=== PATIENT | male | born 1950 | race Caucasian/White ===

== ENCOUNTER 2020-07-07 10:59 | Outpatient (REF) | payer MEDICARE, OTHER, SELFPAY ==
[2020-07-07 13:42] LABS: Anion Gap 15 (12-20); Blood Urea Nitrogen 19 mg/dL (9-16); Carbon Dioxide 28 mmol/L (22-29); Chloride 103 mmol/L (96-108); Estimated Glomerular Filt Rate > 60; Glucose Random 121 mg/dL (60-115); Potassium 5.3 mmol/l (3.3-5.1); Sodium 141 mmol/L (135-145)
== END 2020-07-07 11:00 | disposition home or self-care (01) ==
LOC: HO.MANLDS 10:59
PROVIDERS: PCP Internal Medicine; Visit Provider Internal Medicine
DX: E87.5 Hyperkalemia (principal)
CPT/HCPCS: 80048

== ENCOUNTER 2021-01-06 11:03 | Outpatient (REF) | payer MEDICARE, OTHER, SELFPAY ==
[2021-01-06 13:37] LABS: Estimated Average Glucose 131 mg/dL; Hemoglobin A1c % 6.2 %
[2021-01-06 13:39] LABS: Alanine Aminotransferase 29 U/L (0-40); Albumin Level 4.3 g/dL (3.5-5.0); Alkaline Phosphatase 68 U/L (39-117); Anion Gap 17 (12-20); Aspartate Amino Transferase 24 U/L (5-37); Bilirubin Total 0.3 mg/dL (0.0-1.0); Blood Urea Nitrogen 16 mg/dL (9-16); Calcium 10.3 mg/dL (8.4-10.2); Carbon Dioxide 27 mmol/L (22-29); Chloride 103 mmol/L (96-108); Cholesterol 140 mg/dL; Estimated Glomerular Filt Rate > 60; Glucose Fasting 106 mg/dL (60-99); HDL Cholesterol 52 mg/dL; LDL Cholesterol Calculated 74 mg/dl; Potassium 4.7 mmol/L (3.3-5.1); Sodium 142 mmol/L (135-145); Triglycerides 71 mg/dL
[2021-01-06 13:39] LABS: Creatinine Urine 176.48 mg/dL; Microalbum/Creatinine Ratio Ur 88.9 ug/mg cr
[2021-01-06 14:01] LABS: Free T4 (Free Thyroxine) 1.44 ng/dL (0.71-1.85); Thyroid Stimulating Hormone 0.01 uIU/mL (0.32-4.0)
== END 2021-01-06 11:04 | disposition home or self-care (01) ==
LOC: HO.MANLDS 11:03
PROVIDERS: PCP Internal Medicine; Visit Provider Internal Medicine
DX: E11.9 Type 2 diabetes mellitus without complications (principal); E03.9 Hypothyroidism, unspecified
CPT/HCPCS: 36415; 80053; 80061; 82043; 83036; 84439; 84443

== ENCOUNTER 2021-05-14 10:48 | Outpatient (REF) | payer MEDICARE, OTHER, SELFPAY ==
[2021-05-15 07:34] LABS: Estimated Average Glucose 148 mg/dL; Hemoglobin A1c % 6.8 %
== END 2021-05-14 10:49 | disposition home or self-care (01) ==
LOC: HO.MANLDS 10:48
PROVIDERS: PCP Internal Medicine; Visit Provider Internal Medicine
DX: E11.9 Type 2 diabetes mellitus without complications (principal); E03.9 Hypothyroidism, unspecified
CPT/HCPCS: 36415; 83036

== ENCOUNTER 2021-08-17 09:38 | Outpatient (REF) | payer MEDICARE, OTHER, SELFPAY ==
[2021-08-17 11:16] LABS: Alanine Aminotransferase 41 U/L (0-40); Albumin Level 4.2 g/dL (3.5-5.0); Alkaline Phosphatase 96 U/L (39-117); Anion Gap 11 (12-20); Aspartate Amino Transferase 32 U/L (5-37); Bilirubin Total 0.5 mg/dL (0.0-1.0); Blood Urea Nitrogen 14 mg/dL (9-16); Calcium 9.8 mg/dL (8.4-10.2); Carbon Dioxide 26 mmol/L (22-29); Chloride 108 mmol/L (96-108); Cholesterol 154 mg/dL; Estimated Glomerular Filt Rate > 60; Glucose Fasting 126 mg/dL (60-99); HDL Cholesterol 51 mg/dL; LDL Cholesterol Calculated 82 mg/dl; Potassium 4.9 mmol/L (3.3-5.1); Sodium 140 mmol/L (135-145); Total Protein 7.1 g/dL (6.5-8.0); Triglycerides 109 mg/dL
[2021-08-17 11:21] LABS: Estimated Average Glucose 157 mg/dL; Hemoglobin A1c % 7.1 %
[2021-08-17 11:36] LABS: Free T4 (Free Thyroxine) 1.28 ng/dL (0.71-1.85); Thyroid Stimulating Hormone 0.01 uIU/mL (0.32-4.0)
[2021-08-17 15:09] LABS: Creatinine Urine 117.41 mg/dL; Microalbum/Creatinine Ratio Ur 120.9 ug/mg cr
== END 2021-08-17 09:39 | disposition home or self-care (01) ==
LOC: HO.MANLDS 09:38
PROVIDERS: PCP Internal Medicine; Visit Provider Internal Medicine
DX: E11.9 Type 2 diabetes mellitus without complications (principal); E03.9 Hypothyroidism, unspecified
CPT/HCPCS: 36415; 80053; 80061; 82043; 83036; 84439; 84443

== ENCOUNTER 2022-01-14 11:36 | Outpatient (REF) | payer MEDICARE, OTHER, SELFPAY ==
[2022-01-14 13:28] LABS: Estimated Average Glucose 131 mg/dL; Hemoglobin A1c % 6.2 %
[2022-01-14 13:33] LABS: Alanine Aminotransferase 45 U/L (0-40); Albumin Level 4.4 g/dL (3.5-5.0); Alkaline Phosphatase 96 U/L (39-117); Anion Gap 13 (12-20); Aspartate Amino Transferase 36 U/L (5-37); Bilirubin Total 0.5 mg/dL (0.0-1.0); Blood Urea Nitrogen 17 mg/dL (9-16); Calcium 10.2 mg/dL (8.4-10.2); Carbon Dioxide 26 mmol/L (22-29); Chloride 106 mmol/L (96-108); Cholesterol 146 mg/dL; Estimated Glomerular Filt Rate > 60; Glucose Random 119 mg/dL (60-115); HDL Cholesterol 54 mg/dL; LDL Cholesterol Calculated 77 mg/dl; Potassium 4.2 mmol/L (3.3-5.1); Sodium 141 mmol/L (135-145); Total Protein 7.5 g/dL (6.5-8.0); Triglycerides 76 mg/dL
[2022-01-14 13:41] LABS: Creatinine Urine 55.05 mg/dL; Microalbum/Creatinine Ratio Ur 159.8 ug/mg cr
[2022-01-14 13:53] LABS: Free T4 (Free Thyroxine) 1.45 ng/dL (0.71-1.85); Thyroid Stimulating Hormone < 0.01 uIU/mL (0.32-4.0)
== END 2022-01-14 11:37 | disposition home or self-care (01) ==
LOC: HO.MANLDS 11:36
PROVIDERS: PCP Internal Medicine; Visit Provider Internal Medicine
DX: E11.9 Type 2 diabetes mellitus without complications (principal); E03.9 Hypothyroidism, unspecified
CPT/HCPCS: 36415; 80053; 80061; 82043; 83036; 84439; 84443

== ENCOUNTER 2022-05-11 08:53 | Outpatient (REF) | payer MEDICARE, OTHER, SELFPAY ==
[2022-05-11 11:46] LABS: Estimated Average Glucose 114 mg/dL; Hemoglobin A1C 152.6518 umol/L; Hemoglobin A1c % 5.6 %
[2022-05-11 12:28] LABS: Free T4 (Free Thyroxine) 1.56 ng/dL (0.71-1.85); Thyroid Stimulating Hormone 0.01 uIU/mL (0.32-4.0)
[2022-05-11 12:48] LABS: Alanine Aminotransferase 37 U/L (0-40); Albumin Level 4.2 g/dL (3.5-5.0); Alkaline Phosphatase 104 U/L (39-117); Anion Gap 19 (12-20); Aspartate Amino Transferase 33 U/L (5-37); Bilirubin Total 0.5 mg/dL (0.0-1.0); Blood Urea Nitrogen 17 mg/dL (9-16); Carbon Dioxide 23 mmol/L (22-29); Chloride 105 mmol/L (96-108); Estimated Glomerular Filt Rate > 60; Glucose Random 63 mg/dL (60-115); Potassium 5.3 mmol/L (3.3-5.1); Sodium 142 mmol/L (135-145); Total Protein 7.2 g/dL (6.5-8.0)
== END 2022-05-11 08:54 | disposition home or self-care (01) ==
LOC: HO.MANLDS 08:53
PROVIDERS: Visit Provider Internal Medicine
DX: E03.9 Hypothyroidism, unspecified (principal); E11.9 Type 2 diabetes mellitus without complications
CPT/HCPCS: 36415; 80053; 83036; 84439; 84443

== ENCOUNTER 2022-08-16 11:44 | Outpatient (REF) | payer MEDICARE, OTHER, SELFPAY ==
[2022-08-16 16:10] LABS: Alanine Aminotransferase 48 U/L (0-40); Albumin Level 4.5 g/dL (3.5-5.0); Alkaline Phosphatase 85 U/L (39-117); Anion Gap 14 (12-20); Aspartate Amino Transferase 38 U/L (5-37); Bilirubin Total 0.4 mg/dL (0.0-1.0); Blood Urea Nitrogen 15 mg/dL (9-16); Calcium 10.1 mg/dL (8.4-10.2); Carbon Dioxide 26 mmol/L (22-29); Chloride 106 mmol/L (96-108); Estimated Glomerular Filt Rate > 60; Free T4 (Free Thyroxine) 1.27 ng/dL (0.71-1.85); Glucose Random 73 mg/dL (60-115); Sodium 141 mmol/L (135-145); Thyroid Stimulating Hormone 0.01 uIU/mL (0.32-4.0); Total Protein 7.2 g/dL (6.5-8.0)
[2022-08-16 16:11] LABS: Estimated Average Glucose 123 mg/dL; Hemoglobin A1c % 5.9 %
== END 2022-08-16 11:45 | disposition home or self-care (01) ==
LOC: HO.MANLDS 11:44
PROVIDERS: Visit Provider Internal Medicine
DX: E03.9 Hypothyroidism, unspecified (principal); E11.9 Type 2 diabetes mellitus without complications
CPT/HCPCS: 36415; 80053; 83036; 84439; 84443

== ENCOUNTER 2022-11-02 10:29 | Outpatient (REF) | payer MEDICARE, OTHER, SELFPAY ==
[2022-11-02 13:21] LABS: Estimated Average Glucose 137 mg/dL; Hemoglobin A1c % 6.4 %
== END 2022-11-02 10:30 | disposition home or self-care (01) ==
LOC: HO.MANLDS 10:29
PROVIDERS: Visit Provider Internal Medicine
DX: E11.9 Type 2 diabetes mellitus without complications (principal)
CPT/HCPCS: 36415; 83036

== ENCOUNTER 2023-03-01 08:26 | Outpatient (REF) | payer MEDICARE, OTHER, SELFPAY | END 2023-03-01 08:27 | disposition home or self-care (01) | LOC: HO.MANLDS 08:26 | PROVIDERS: Visit Provider Internal Medicine | DX: E78.5 Hyperlipidemia, unspecified (principal); I48.91 Unspecified atrial fibrillation; E11.9 Type 2 diabetes mellitus without complications | CPT/HCPCS: 36415; 80053; 83036; 84439; 84443 ==

== ENCOUNTER 2023-08-23 09:33 | Outpatient (REF) | payer MEDICARE, OTHER, SELFPAY ==
[2023-08-23 13:42] LABS: Estimated Average Glucose 134 mg/dL; Hemoglobin A1c % 6.3 % (<6.0)
[2023-08-23 16:51] LABS: Alanine Aminotransferase 44 U/L (0-40); Albumin Level 4.2 g/dL (3.5-5.0); Alkaline Phosphatase 78 U/L (39-117); Anion Gap 11 (12-20); Aspartate Amino Transferase 39 U/L (5-37); Bilirubin Total 0.4 mg/dL (0.0-1.0); Blood Urea Nitrogen 15 mg/dL (9-16); Calcium 10.1 mg/dL (8.4-10.2); Carbon Dioxide 28 mmol/L (22-29); Chloride 108 mmol/L (96-108); Estimated Glomerular Filt Rate > 60; Glucose Random 107 mg/dL (60-115); Potassium 4.7 mmol/L (3.3-5.1); Sodium 142 mmol/L (135-145); Total Protein 7.7 g/dL (6.5-8.0)
[2023-08-23 17:16] LABS: Free T4 (Free Thyroxine) 1.11 ng/dL (0.71-1.85); Thyroid Stimulating Hormone 0.07 uIU/mL (0.32-4.0)
== END 2023-08-23 09:34 | disposition home or self-care (01) ==
LOC: HO.MANLDS 09:33
PROVIDERS: Visit Provider Internal Medicine
DX: E78.5 Hyperlipidemia, unspecified (principal); I48.91 Unspecified atrial fibrillation
CPT/HCPCS: 36415; 80053; 83036; 84439; 84443

== ENCOUNTER 2023-12-12 09:31 | Outpatient (REF) | payer MEDICARE, OTHER, SELFPAY ==
[2023-12-12 14:28] LABS: Estimated Average Glucose 134 mg/dL; Hemoglobin A1c % 6.3 % (<6.0)
[2023-12-12 16:40] LABS: Alanine Aminotransferase 40 U/L (0-40); Albumin Level 4.1 g/dL (3.5-5.0); Alkaline Phosphatase 71 U/L (39-117); Anion Gap 13 (12-20); Aspartate Amino Transferase 35 U/L (5-37); Bilirubin Total 0.3 mg/dL (0.0-1.0); Blood Urea Nitrogen 13 mg/dL (9-16); Calcium 9.7 mg/dL (8.4-10.2); Carbon Dioxide 24 mmol/L (22-29); Chloride 108 mmol/L (96-108); Estimated Glomerular Filt Rate > 60; Glucose Random 82 mg/dL (60-115); Potassium 4.7 mmol/L (3.3-5.1); Sodium 140 mmol/L (135-145); Total Protein 7.3 g/dL (6.5-8.0)
[2023-12-12 16:43] LABS: Free T4 (Free Thyroxine) 1.24 ng/dL (0.71-1.85); Thyroid Stimulating Hormone 0.13 uIU/mL (0.32-4.0)
== END 2023-12-12 09:32 | disposition home or self-care (01) ==
LOC: HO.MANLDS 09:31
PROVIDERS: Visit Provider Internal Medicine
DX: I48.91 Unspecified atrial fibrillation (principal); E11.9 Type 2 diabetes mellitus without complications; E78.5 Hyperlipidemia, unspecified
CPT/HCPCS: 36415; 80053; 83036; 84439; 84443

== ENCOUNTER 2024-04-02 09:16 | Outpatient (REF) | payer MEDICARE, OTHER, SELFPAY ==
[2024-04-02 14:01] LABS: Estimated Average Glucose 128 mg/dL; Hemoglobin A1c % 6.1 % (<6.0)
== END 2024-04-02 09:17 | disposition home or self-care (01) ==
LOC: HO.MANLDS 09:16
PROVIDERS: Visit Provider Internal Medicine
DX: E11.9 Type 2 diabetes mellitus without complications (principal)
CPT/HCPCS: 36415; 83036

== ENCOUNTER 2024-06-24 08:08 | Outpatient (REF) | payer MEDICARE, OTHER, SELFPAY ==
[2024-06-24 14:10] LABS: Estimated Average Glucose 134 mg/dL; Hemoglobin A1C 177.0258 umol/L; Hemoglobin A1c % 6.3 % (<6.0); Total Hemoglobin (HGBA1C) 3951.4873 umol/L
[2024-06-24 14:17] LABS: Alanine Aminotransferase 27 U/L (0-40); Albumin Level 4.3 g/dL (3.5-5.0); Alkaline Phosphatase 73 U/L (39-117); Anion Gap 15 (12-20); Aspartate Amino Transferase 39 U/L (5-37); Bilirubin Total 0.3 mg/dL (0.0-1.0); Blood Urea Nitrogen 14 mg/dL (9-16); Calcium 10.4 mg/dL (8.4-10.2); Carbon Dioxide 23 mmol/L (22-29); Chloride 106 mmol/L (96-108); Cholesterol 175 mg/dL (<200); Estimated Glomerular Filt Rate > 60; Glucose Random 92 mg/dL (60-115); HDL Cholesterol 58 mg/dL (>40); LDL Cholesterol Calculated 98 mg/dL (<100); Potassium 4.3 mmol/L (3.3-5.1); Sodium 140 mmol/L (135-145); Total Protein 7.5 g/dL (6.5-8.0); Triglycerides 95 mg/dL (<150)
[2024-06-24 14:30] LABS: Prostate Specific Antigen 1.07 ng/mL (<0.05-4.0)
[2024-06-24 14:32] LABS: Thyroid Stimulating Hormone 0.58 uIU/mL (0.32-4.0)
== END 2024-06-24 08:09 | disposition home or self-care (01) ==
LOC: HO.MANLDS 08:08
PROVIDERS: Visit Provider Internal Medicine
DX: E11.9 Type 2 diabetes mellitus without complications (principal); E03.9 Hypothyroidism, unspecified; E78.00 Pure hypercholesterolemia, unspecified; N40.0 Benign prostatic hyperplasia without lower urinary tract symptoms; Z12.5 Encounter for screening for malignant neoplasm of prostate
CPT/HCPCS: 36415; 80053; 80061; 83036; 84153; 84443

== ENCOUNTER 2024-10-02 10:52 | Outpatient (REF) | payer MEDICARE, OTHER, SELFPAY ==
--- OUTSIDE RECORDS SUMMARY | 2024-10-02 12:08 | XMS_ITS | Clinical Summary ---
Author Organization [facility] Address [phone] [place] [address] Care Team Providers Care Media Specialist Name Role Phone Amauryyanni Rangel Carina OWENS Primary Care Provider [phone] Social History Tobacco Use Types Packs/Day Years Used Date Smoking Tobacco: Never Assessed Education Answer Date Recorded Are you interested in more education? Not on tita e 12/23/2022 Are you concerned about learning? Not on file 12/23/2022 No 12/23/2022 No 12/23/2022 Digital Access Answer Date Recorded No 01/23/2023 No 01/23/2023 No 01/23/2023 Reliable internet access at home? Not on file 01/23/2023 Device with a working camera? Not on file Sex and Gender Information Value Date Recorded Sex Assigned at Not on file Gender Identity Not on file Sexual Orientation Not on file Last Filed Vital Signs Vital Sign Reading Time Taken Comments Blood Pressure 132/80 12/29/2010 9:05 AM EDT Pulse - - Temperature - - Respiratory Rate - - Oxygen Saturation - - Inhaled Oxygen Concentration - - Weight - - Height - - Body Mass Index - - Plan of Treatment Not on file Medical Devices Not on file Care Teams Media Specialist Relationship Specialty Start Date End Date Rangel Zepeda DO PCP - General Internal Medicine 09/22/20 Additional Source Comments The information contained in this document represents components of the legal health record. It is not the complete legal health record.[facility]
--- OUTSIDE RECORDS SUMMARY | 2024-10-02 12:08 | XMS_ITS | Clinical Summary ---
Author Organization [facility] Address [address] [place] [address] Care Team Providers Care Drencher Name Role Phone Rangel Zepeda Primary Care Provider [phone] Medications Aspirin (ST VLADIMIR) 81 MG EC tablet 1 (one) time each day at the same time. Active Semaglutide (Ozempic, 1 MG/DOSE,) 4 MG/3ML prefilled pen Ozempic 1 mg/dose (4 mg/3 mL) subcutaneous pen injector Inject by subcutaneous route for 21 days. Active Lovastatin (MEVACOR) 40 MG tablet Take 40 mg by mouth 1 (one) time each day. 3 Active amLODIPine Besylate (NORVASC) 5 MG tablet amlodipine 5 mg tablet TAKE 1 TABLET BY MOUTH EVERY DAY Active Levothyroxine Sodium (SYNTHROID, LEVOTHROID) 125 MCG tablet Take 125 mcg by mouth 1 (one) time each day. 3 Active Immunizations Name Administration Dates Next Due COVID-19, mRNA (Pfizer Pre F 2022) Monovalent, 30 mcg/0.3 ml 06/04/2021,11/19/2020,10/29/2020 Covid-19, mRNA (Pfizer Pre F all 2022) Bivalent, 30 mcg/0.3 ml vasquez-sucrose (12+) dose 07/09/2022 Covid-19, mRNA (Pfizer Pre F all 2022) Monovalent, 30 mcg/0.3 ml vasquez-sucrose (12+) 11/26/2021 Influenza, Quad, Inactivated , Adjuvanted, Preser Fr 06/11/2021 Influenza,adjuvanted,trivalent,PF (Fluad) 2016 Influenza,high dose seasonal ,trivalent,PF (Fluzone HD) 04/24/2019,07/07/2018 Influenza,high-dose, Quadrivalent 07/31/2023,01/2022 Influenza,injectable,quad,preservative Tdap 11/02/2016 Zoster (Zostavax) 03/13/2018,11/22/2017 Social History Tobacco Use Types Packs/Day Years Used Date Smoking Tobacco: Never Passive Smoke Exposure: Never Smokeless Tobacco: Never Intimate Partner Violence Answer Date R ecorded Fear of Current or Ex-Partner Not on file Emotionally Abused Not on file 04/17/2023 Physically Abused Not on file 04/17/2023 Sexually Abused Not on file 04/17/2023 Feel Safe at Home Not on file 04/17/2023 Sex and Gender Information Value Date Recorded Sex Assigned at Not on file Legal Sex Male 3:26 PM EDT Gender Identity Not on file Sexual Orientation Not on file Last Filed Vital Signs Vital Sign Reading Time Taken Comments Blood Pressure 162/72 01/29/2023 3:52 PM EDT Pulse 89 01/29/2023 3:50 PM EDT Temperature 37.5 ??C (99.5 ??F) 01/29/2023 3:50 PM ED T Respiratory Rate - - Oxygen Saturation 97% 01/29/2023 3:50 PM EDT Inhaled Oxygen Concentration - - Weight - - Height - - Body Mass Index - - Plan of Treatment Health Maintenance Due Date Last Done Comments Hepatitis C Screening 1948 Colon Cancer Screening 1993 Pneumococcal 50+ years (1 of 1 - PCV) 1998 Zoster (Shingrix) (2 of 3) 05/08/2018 03/13/2018, RSV (1 - 1-dose 75+ series) 2023 COVID-19 Vaccine ( season) 2024 07/09/2022, 11/26/2021, 06/04/2021, Additional history exists Influenza (#1) 2024 07/31/2023, 10/01/2022, 06/11/2021, Additional history exists DTaP/Tdap/Td (2 - Td or Tdap) 11/02/2026 11/02/2016 Zoster (Zostavax) Discontinued 03/13/2018, 11/22/2017 LDL Cholesterol Discontinued 09/22/2020, 09/22/2020 HPV Vaccine Aged Out No longer eligi ble based on patient's age to complete this topic Hep A Aged Out No longer eligi ble based on patient's age to complete this topic Hep B Aged Out No longer eligi ble based on patient's age to complete this topic Hib Aged Out No longer eligi ble based on patient's age to complete this topic Meningococcal ACWY Aged Out No longer eligible based on patient's age to complete this topic Insurance MEDICARE PART B Care Teams Drencher Relationship Specialty Start Date End Date Rangel Zepeda [facility] [address] [place] [id number] PCP - General Internal Medicine 01/29/23
--- OUTSIDE RECORDS SUMMARY | 2024-10-02 12:09 | XMS_ITS | Data Portability ---
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 REVIEW OF PRIOR EXTERNAL NOTES/RESULTS, ORDERING OF TEST(S) CATEGORY 2. 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) MDM MODERATE MUST MEET 2 OUT OF 3 ELEMENTS: PROBLEMS, DATA OR RISK ELEMENT 1: PROBLEMS ADDRESSED 1 OR MORE CHRONIC ILLNESS WITH EXACERBATION OR 2 OR MORE STABLE CHRONIC ILLNESSES OR 1 UNDIAGNOSED NEW PROBLEM OR 1 ACUTE ILLNESS W/SYMPTOMS OR 1 ACUTE COMPLICATED INJURY ELEMENT 2: DATA MUST MEET 1 OF 3 CATEGORIES CATEGORY 1: REVIEW OF PRIOR EXTERNAL NOTES, REVIEW OF RESULTS, ORDERING OF EACH TEST, ASSESSMENT REQUIRING INDEPENDENT HISTORIAN OR CATEGORY 2: INDEPENDENT INTERPRETATION OF TESTS BY ANOTHER PHYSICIAN OR SPECIALIST OR CATEGORY 3: DISCUSSION OF MGT OR TEST INTERPRETATION W/EXTERNAL PHYSICIAN OR SPECIALIST ELEMENT 3: RISK RISK OF COMPLICATIONS AND/OR MORBIDITY OR MORTALITY OF PATIENT MANAGEMENT PROVIDER MUST THOROUGHLY DOCUMENT EACH ELEMENT THAT IS COVERED Not available 09/01/2023 10:52:06 12/19/2023 12/19/2023 [id number] [place] [id number]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) MDM MODERATE MUST MEET 2 OUT OF 3 ELEMENTS: PROBLEMS, DATA OR RISK ELEMENT 1: PROBLEMS ADDRESSED 1 OR MORE CHRONIC ILLNESS WITH EXACERBATION OR 2 OR MORE STABLE CHRONIC ILLNESSES OR 1 UNDIAGNOSED NEW PROBLEM OR 1 ACUTE ILLNESS W/SYMPTOMS OR 1 ACUTE COMPLICATED INJURY ELEMENT 2: DATA MUST MEET 1 OF 3 CATEGORIES CATEGORY 1: REVIEW OF PRIOR EXTERNAL NOTES, REVIEW OF RESULTS, ORDERING OF EACH TEST, ASSESSMENT REQUIRING INDEPENDENT HISTORIAN OR CATEGORY 2: INDEPENDENT INTERPRETATION OF TESTS BY ANOTHER PHYSICIAN OR SPECIALIST OR CATEGORY 3: DISCUSSION OF MGT OR TEST INTERPRETATION W/EXTERNAL PHYSICIAN OR SPECIALIST ELEMENT 3: RISK RISK OF COMPLICATIONS AND/OR MORBIDITY OR MORTALITY OF PATIENT MANAGEMENT PROVIDER MUST THOROUGHLY DOCUMENT EACH ELEMENT THAT IS COVERED Not available 12/19/2023 14:19:09 06/28/2024 06/28/2024 Patient presente d to office today for their Medicare Annual Wellness Visit. Education was provided on healthy nutrition, including a diet rich in fruits and vegetables, minimizing simple carbohydrates, salt, and saturated fats. Encouraged regular cardiovascular exercise such as walking at least 30 minutes daily, 5 times per week. Emphasized preventive health measures and educated pt on fall prevention and community-based lifestyle interventions to help reduce health risks and promote healthy living. Not available 03/27/2024 14:05:15 Plan of Treatment Reminders Order Date Submit Date Provider Last Modified By Organization Details Last Modified Time Details Appointments FOLLOW UP 15 2024 02:00P M DR MACDONALD Not available Not available Not available Lab hepatitis C Ab, serum 2022 023 [facility], [address] [place] [address], [id number], 03/07/2023 14:30:33 lipid panel, blood 2023 024 [facility], [address] [place] [address], [id number], 06/28/2024 13:59:25 CBC w/ auto diff 2023 024 [facility], [address] [place] [address], [id number], 06/28/2024 13:59:25 CMP, serum or plasma 2023 024 [facility], [address] [place] [address], [place], [address], 06/28/2024 13:59:25 Referral None recorded. Procedures None recorded. Surgeries None recorded. Imaging XR, knee, 3 view 2023 [facility] (Central Scheduling For Imaging And Labs), [address] [place] [address], [id number], 07/12/2024 08:23:31 Medication Orders None recorded. Patient TargetsNo targets recorded. Patient Instructions Encounter Date Encounter Id Patient Instructions Last Modified By Organization Details Last Modified Time 03/07/2023 [id number] diabetic foot exam* Not available 03/07/2023 14:25:45 pulse oximetry* Not available 03/07/2023 14:25:46 06/13/2023 [id number] atrial fibrillation: care instructions Not available 06/13/2023 14:08:18 aortic valve stenosis: care instructions Not available 06/13/2023 14:08:18 12/19/2023 [id number] atrial fibrillation: care instructions Not available 12/19/2023 14:21:27 06/28/2024 [id number] atrial fibrillation: care instructions Not available 06/28/2024 13:58:03 hypothyroidism: care instructions Not available 06/28/2024 13:58:03 aortic valve stenosis: care instructions Not available 06/28/2024 13:58:03 Discussed and explained advance directives such as standard forms to the {{patient caregiv er patient and caregiver}}. Face to face discussion lasted for a duration of ___ minutes. Not available 03/27/2024 14:05:15 Reason for Referral None Reported. Results Created Date Observation Date Name Description Value Unit Range Abnormal Flag Note LastModifiedBy Organization Detail LastModifiedTime 03/07/2003/07/2023 pulse oxime try* Result 96 Not Available [facility] [address] [facility] [address], [place], [address], 03/07/2023 08:20:24 03/08/2001/31/2023 , echo ardio gram No observ ation record ed. [facility] (Central Scheduling For Imaging And Labs) [address] [facility], [place], [address], 06/13/2023 14:09:47 Result Notes None recorded. 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 Kaelyn ortiz [facility] 8 08:44:43 Diabetic peripher al neuropat hy 149211127 Active 2020 Rangel Macdonald DO [address] [place] [address], [address], [place] [facility] 1 13:53:46 Primary erectile dysfunct ion 029655449 Active 2020 Rangel Macdonald DO [address] [place], [address], [place] [facility] 1 14:09:52 Chronic cough 63433476 Active 2022 Rangel Macdonald DO [address] [place], [address], [facility] 3 15:13:26 Dyspnea on exertion 71968561 Active 2022 Rangel Dominguez Amauryyanni, DO [address] [place], [address], [facility] 3 23:00:00 Atrial fibrilla tion 09168810 Active 2022 Rangel Dominguez Katelyn, DO [address] [place] [address], [address], [facility] 3 09:56:04 Aortic valve stenosis 56609807 Active 2022 Rangel CarinaElizabeth Macdonald, DO [address] [place] [address], [address], [facility] ([facility] 3 16:18:34 COVID-19 614788608 Active 2022 ALDEN VÁSQUEZ [address] [place] [address], [address], [facility] 3 09:30:55 Benign prostati c hyperpla saba 793293136 Active 2023 Rangel LimElizabeth Macdonald, DO [address] [place] [address], [address], [facility] 4 15:34:00 Contusio n of left knee 8604221711 1853385 Active 2023 Rangel Macdonald, DO [address] [place] [address], [address], [facility] 4 13:57:10 Notes:[place] - possi ble exposed to agent orange Problem Notes None recorded. Procedures Surgical History Date Name Laterality Status Provider Name and Address Organization Details Recorded Time 0 Colonoscopy completed Kaelyn Howard [facility] 08/07/2018 14:16:54 Imaging Results Imaging Date Name Status LastModified by Organization Details LastModified Time 01/31/2023 US, echocardiogram completed [facility] (Central Scheduling For Imaging And Labs) [address] [facility], [place], [address], 06/13/2023 14:09:47 Procedure Notes None recorded. Medical Equipment None Reported. Allergies No known drug allergies Medications Name Sig Start Date Stop Date Status Note LastModified by Organization Details LastModified Time metformin 500 mg tablet TAKE 4 TABLETS BY MOUTH EVERY DAY 01/13 completed Not Available Not Available Not Available levothyro xine 137 mcg tablet TAKE 1 TABLET BY MOUTH EVERY DAY 03/07 completed Not Available Not Available Not Available lovastati n 40 mg tablet TAKE 1 TABLET BY MOUTH EVERY DAY 2024 active Not Available Not Available Not Avai lable amlodipin e 5 mg tablet TAKE 1 TABLET BY MOUTH EVERY DAY active Not Available Not Available No t Available cefadroxi l 500 mg capsule 03/07 completed Not Available Not Available Not Available levothyro xine 125 mcg tablet TAKE 1 TABLET BY MOUTH EVERY DAY 06/13 completed Not Available Not Available Not Available aspirin 81 mg chewable tablet CHEW AND SWALLOW ONE TABLET EVERY DAY active Not Available Not Available No t Available lisinopri l 5 mg tablet TAKE 1 TABLET BY MOUTH EVERY DAY 10/22 completed elevated K+ Not Available Not Available Not Available Aspir-81 mg tablet,de layed release Take 1 tablet every day by oral route. 12/18 completed Not Available Not Available Not Available lisinopri l 40 mg tablet take 1 tablet by mouth once daily 10/08 completed Not Available Not Available Not Available levothyro xine 112 mcg tablet TAKE 1 TABLET BY MOUTH EVERY DAY active Not Available Not Available No t Available OneTouch UltraSoft Lancets TEST twice a day 10/31 completed Not Available Not Available Not Available Januvia 100 mg tablet TAKE 1 TABLET BY MOUTH ONCE DAILY 01/13 completed Not Available Not Available Not Available OneTouch Verio test strips TEST ONCE DAILY 2023 active Not Available Not Available Not Avai lable Levemir FlexTouch U-100 Insulin 100 unit/mL (3 mL) subcutane ous pen Inject 30 units every day by sub-q route for 23 days. 05/08 completed Not Available Not Available Not Available Jardiance 10 mg tablet TAKE 1 TABLET BY MOUTH EVERY DAY active Not Available Not Available No t Available Daleaglpastora KwikPen U-100 Insulin 100 unit/mL (3 mL) subcutane ous ADMINIST ER 45 UNITS UNDER THE SKIN EVERY DAY 2023 active Not Available Not Available Not Avai lable Shingrix (PF) 50 mcg/0.5 mL intramusc ular suspensio n, kit 04/11 completed Not Available Not Available Not Available Ozempic 1 mg/dose (2 mg/1.5 mL) subcutane ous pen injector INJECT 1 MG UNDER THE SKIN WEEKLY AFTER COMPLETI NG TITRATIO N DOSE OF 0.25-0.5 MG 10/31 completed Not Available Not Available Not Available Ozempic 0.25 mg or 0.5 mg (2 mg/1.5 mL) subcutane ous pen injector inject 0.25mg x 4 doses, 0.5mg x 4 doses, then 1mg thereaft er is tolerate d 10/31 completed Not Available Not Available Not Available BD Kimmie 2nd Gen Pen Needle 32 gauge x 32 USE TO INJECT ONCE DAILY DIRECTED 2023 active Not Available Not Available Not Avai lable OneTouch Delica Plus Lancet 33 gauge USE TO TEST THREE TIMES DAILY 2023 active Not Available Not Available Not Avai lable Fluzone High-Dose 2019-20 (PF) 180 mcg/0.5 mL intramusc ular syringe 10/08 completed Not Available Not Available Not Available Ozempic 1 mg/dose (4 mg/3 mL) subcutane ous pen injector INJECT 1MG UNDER THE SKIN EVERY WEEK 2023 active Not Available Not Available Not Avai lable BinaxNOW COVID-19 Ag Self Test kit TEST DIRECTED TODAY 03/07 completed Not Available Not Available Not Available Paxlovid 300 mg (150 mg x 2)-100 mg tablets in a dose pack TK 2 NIRMATRE LVIR TS AND 1 RITONAVI R T TOGETHER PO TWICE DAILY FOR 5 DAYS 06/13 completed Not Available Not Available Not Available Vitals Date Recorded Body height Body mass index (BMI) Body weight Heart rate Oxygen saturation Oxygen saturation in Arterial blood by Pulse oximetry Systolic blood pressure Diastolic blood pressure Provider Name and Address Organization Details Last Updated DateTime 3 183.52 cm 25.7 kg/m2 04224.5 g 78 /min 96 % 96 % 140 mm[Hg] 80 mm[Hg] Rangel Macdonald, DO [address] [place], [address], [facility] 3 13:37:36 Date Recorded Body height Body mass index (BMI) Body weight Heart rate Oxygen saturation Oxygen saturation in Arterial blood by Pulse oximetry Systolic blood pressure Diastolic blood pressure Provider Name and Address Organization Details Last Updated DateTime 3 183.52 cm 26.4 kg/m2 30735.1 g 63 /min 98 % 98 % 120 mm[Hg] 68 mm[Hg] Rosey Marshall [facility] 3 13:53:13 Date Recorded Body height Body mass index (BMI) Body weight Heart rate Oxygen saturation Oxygen saturation in Arterial blood by Pulse oximetry Systolic blood pressure Diastolic blood pressure Provider Name and Address Organization Details Last Updated DateTime 4 183.52 cm 27.2 kg/m2 36699.7 4 g 70 /min 98 % 98 % 152 mm[Hg] 84 mm[Hg] Brittani Perez [facility] 4 13:56:01 Date Recorded Body height Body mass index (BMI) Body weight Heart rate Oxygen saturation Oxygen saturation in Arterial blood by Pulse oximetry Systolic blood pressure Diastolic blood pressure Provider Name and Address Organization Details Last Updated DateTime 4 182.88 cm 27.4 kg/m2 65349.6 6 g 62 /min 96 % 96 % 140 mm[Hg] 84 mm[Hg] Kd Mackey [facility] 4 13:31:49 Social History Question Answer Notes LastModified by Organizat ion Details LastModified Time Tobacco Smoking Status Former Smoker 1 ppd Kaelyn ortiz [facility] 08/07/2018 13:50:58 What Was The Date Of Your Most Recent Tobacco Screening? 06/28/2024 [email or web address] Information not available 06/28/2024 Do You Or Have You Ever Used Any Other Forms Of Tobacco Or Nicotine? No Information not available 10/31/2022 Sex: Unknown Functional Status None recorded. Mental Status None recorded. Family History Nothing Reported. Medical History No medical history recorded. Immunizations Vaccine Type Date Status Note Provider Nam e and Address Organization Details Recorded Time COVID-19, mRNA, LNP-S, PF, 30 mcg/0.3 mL dose 1 completed Dawna rotiz [facility] 02/08/2022 08:31:01 COVID-19, mRNA, LNP-S, PF, 30 mcg/0.3 mL dose 2 [facility]08[facility]2022 08:31:13 Influenza, split virus, quadrivalent, preservative 1 completed [facility] 02/08/2022 08:31:31 Influenza, split virus, quadrivalent, preservative 8 completed Rangel Macdonald, [address], [place], [address] 07/08/2018 19:53:02 zoster live 8 completed Kaelyn Howard [facility] 08/07/2018 13:50:26 zoster live 8 completed [facility] 08/07/2018 13:50:45 Influenza, split virus, quadrivalent, preservative 0 completed [facility] 05/19/2020 10:58:10 Tdap 7 completed Kaelyn Howard [facility] 01/12/2021 09:54:45 COVID-19, mRNA, LNP-S, PF, 30 mcg/0.3 mL dose 1 corey ortiz [facility] 01/12/2021 09:55:04 COVID-19, mRNA, LNP-S, PF, 30 mcg/0.3 mL dose 1 corey ortiz [facility] 01/12/2021 09:55:08 Past Encounters Encounter ID Performer Location Encounter Start Date Encounter Closed Date Diagnosis/Indication Diagnosis SNOMED-CT Code Diagnosis ICD10 Code Diagnosis Note [id number] Rangel Dominguez Katelyn [facility] [address] [facility] [place] [address] 04/11/2018 15:28:28 04/11/2018 16:21:21 Hypertensive disorder 86279781 I10 here and is doing well w bp states Hypothyroidism 59081461 E03.9 need to have this eval next visit Type 2 checo betes mellitus 30117348 E11.9 doing well with 6.6 and will cont with 30 units of levemir [id number] Rangel LimElizabeth Macdonald [facility] [address] [facility] [place] [address] 08/07/2018 13:40:30 08/07/2018 15:35:47 Hypertensive disorder 18338675 I10 here and is doing well w bp states Hypothyroidism 73872340 E03.9 need to have this eval next visit Type 2 checo betes mellitus 03747758 E11.9 doing well with 6.0 and will cont with 30 units of levemir Tobacco de pendence syndrome 79691726 F17.200 many warnings Abdominal aortic aneurysm screening 150405241 Z13.6 [id number] Rangel Macdonald [facility] [address] [facility],[place] [address] 12/04/2018 13:40:30 12/04/2018 14:50:14 Adult health examination 174157705 Z00.01 wish he would quit smoking Active or passive immunization 768265612 Z23 Tobacco de pendence syndrome 28862295 F17.200 many many warnings [id number] Rangel Macdonald [facility] [address] [facility] [place] [address] 03/18/2019 11:11:10 03/18/2019 12:06:43 Type 2 diabetes mellitus 38685742 E11.9 doing well with 5.9 and will cont with 30 units of basaglar Hypothyroidism 51225306 E03.9 need to have this eval next visit Hypertensive disorder 38 681089 I10 here and is doing well w bp states [id number] Rangel Macdonald [facility] [address] [facility] [place] [address] 07/02/2019 13:46:23 07/02/2019 14:40:50 Type 2 diabetes mellitus 12251675 E11.9 doing well with 5.9 and will cont with 30 units of basaglar Hypothyroidism 46282757 E03.9 need to have this eval next visit Hypertensive disorder 38 892407 I10 here and is doing well but given elevated K+ we will need to stop the lisinopril and rechk in a week or so pt will monitor his bp at home Hypercholesterolemia 136 39091 E78.00 stable Hyperkalemia 59105693 E8 7.5 will stop the lisinopril l no signs of RTA type 4 [id number] Rangel Macdonald DO [facility] [address] [facility] [place] [address] 10/08/2019 13:16:33 10/08/2019 14:29:53 Hypercholesterolemia 86377946 E78.00 stable and cont to do her current med Hypertensive disorder 38 386220 I10 BP is stable Type 2 checo betes mellitus 64811505 E11.9 doing well with 6.5 and will cont with 30 units of basaglar [id number] Rangel Macdonald DO [facility] [address] [facility] [place] [address] 02/05/2020 10:46:08 02/05/2020 12:02:11 Type 2 diabetes mellitus 14487382 E11.9 doing well txxijs8v 6.3 was 6.5 and will cont with 30 units of basaglar we lilly try to get him the ozempic and then get off the basaglar Hypertensive disorder 38 686473 I10 BP is stable Hypercholesterolemia 136 15501 E78.00 stable and cont to do her current med Hypothyroidism 86340857 E03.9 need to have this eval next visit Tobacco de pendence syndrome 88437158 F17.200 many many warnings AND HE HAS FINALLY STOPPED!!! !! as of sep this year [id number] Rangel Macdonald DO [facility] [address] [facility],[place] [address] 05/19/2020 10:45:44 05/19/2020 14:21:52 Administration of influenza vaccine 21898220 Z23 [id number] Rangel Macdonald [facility] [address] [facility],[place] [address] 05/25/2020 10:30:17 05/25/2020 11:54:52 Type 2 diabetes mellitus 98374235 E11.9 doing well with a1c was 6.0 6.3 was 6.5 and will decrease the insulin to 25 units of basaglar we lilly try to get him the ozempic and then get off the basaglar Hypothyroidism 84591892 E03.9 need to have this eval next visit Hypertensive disorder 38 385668 I10 BP is elevated but we had to lower the lisinopril due to elevated K+ will stop lisinopril and will use amlodipine 5 mg daily and rechk bmp in a couple weeks Hypercholesterolemia 136 02829 E78.00 stable and cont to do her current med LDL is 82 Hyperkalemia 39531324 E8 7.5 will stop the lisinopril no signs of RTA type 4 [id number] aRngel Macdonald [facility] [address] [facility] [place] [address] 09/28/2020 08:42:39 09/28/2020 13:33:00 Hypertensive disorder 14639575 I10 BP is elevated but we had to lower the lisinopril due to elevated K+ will stop lisinopril and will use amlodipine 5 mg daily and rechk bmp in a couple weeks Type 2 checo betes mellitus 88371852 E11.9 doing well with a1c was 6.3 was 6.0 6.3 was 6.5 and will decrease the insulin to 25 units of basaglar we lilly try to get him the ozempic and then get off the basaglar Hypothyroidism 27723154 E03.9 need to have this eval next visit tsh will be ordered [id number] Rangel Macdonald [facility] [address] [facility] [place] [address] 01/13/2021 13:19:53 01/13/2021 14:43:35 Adult health examination 845113074 Z00.01 pt continues to do well and has been Screening for malignant neoplasm of colon 791911940 Z12.11 Type 2 checo betes mellitus 52169427 E11.9 doing well with a1c was 6.3 was 6.0 6.3 was 6.5 and will decrease the insulin to 25 units of basaglar [id number] Rangel Macdonald [facility] [address] [facility] [place], [place] [facility] [place] [address] 05/25/2021 08:14:51 05/25/2021 15:09:07 Hypertensive disorder 10315613 I10 BP is elevated but we had to lower the lisinopril due to elevated K+ will stop lisinopril and will use amlodipine 5 mg daily and rechk bmp in a couple weeksand bp 130's /70's Hypercholesterolemia 136 35541 E78.00 stable and cont to do her current med LDL is 82 Type 2 checo betes mellitus 89438196 E11.9 doing well with a1c is 6.8 AND was 6.3 was 6.0 6.3 was 6.5 and will decrease the insulin to 25 units of basaglar Hypothyroidism 02260639 E03.9 need to have this eval next visit tsh will be ordered [id number] Rangel Macdonald [facility] [address] [facility],[place] [address] 10/22/2021 07:57:18 10/25/2021 14:00:09 Hypertensive disorder 10842680 I10 BP is elevated but we had to lower the lisinopril due to elevated K+ will stop lisinopril and will use amlodipine 5 mg daily and rechk bmp in a couple weeksand bp 130's /70's Type 2 checo betes mellitus 79161868 E11.9 doing well with a1c of 7.3 but was 6.8 AND was 6.3 was 6.0 6.3 was 6.5will need to rechk 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 we will have him get his sugars better [id number] Rangel Macdonald [facility] [address] [facility] [place], [place] [address] 02/14/2022 12:03:28 02/18/2022 08:08:03 Diabetic peripheral neuropathy 489279892 E11.40 Hypertensive disorder 38 565907 I10 BP is elevated but we had to lower the lisinopril due to elevated K+ will stop lisinopril and will use amlodipine 5 mg daily and rechk bmp in a couple weeksand bp 130's /70's Hypothyroidism 63903988 E03.9 need to have this eval next visit tsh will be ordered Type 2 checo betes mellitus 98581662 E11.9 doing well with a1c of 7.3 but was 6.8 AND was 6.3 was 6.0 6.3 was 6.5will need to rechk [id number] Rangel Macdonald [facility] [address] [facility],[place] [facility] [place] [address] 05/20/2022 13:17:37 05/20/2022 15:51:47 Type 2 diabetes mellitus [id number] E11.9 doing well with a1c of 5.6 and doing great amazing and we will stop the metformina nd we will drop the basaglar to 35 uwill need to rechk Hypothyroidism 67924373 E03.9 tsh is <0.1 wwe need to decrease dose to levothy Hypertensive disorder 38 418602 I10 BP is elevated but we had to lower the lisinopril due to elevated K+ will stop lisinopril and will use amlodipine 5 mg daily and rechk bmp in a couple weeksand bp 130's /70's Diabetic p eripheral neuropathy 882779905 E11.40 [id number] Rangel Macdonald [facility] [address] [facility],[place] [address] 10/31/2022 14:00:19 10/31/2022 15:28:52 Active or passive immunization 576789695 Z23 Adult heal th examination 571037158 Z00.00 pt continues to do well and has been Diabetic p eripheral neuropathy 879286477 E11.40 seems stable right now Type 2 checo betes mellitus 72769438 E11.9 doing well with a1c of 5.6 and doing great amazing and we will stop the metformina nd we will drop the basaglar to 35 uwill need to rechk Hepatitis C screening 41 7252002 Z11.59 Advance care planning 71 2478092 Z71.89 utd Uncontroll ed type 2 diabetes mellitus 308957577 E11.65 Exposure t o Agent Moran 038414484 Z77.29 smoking history [id number] Rangel Macdonald [facility] [address] [facility] [place] [address], [place] [address] 03/07/2023 13:28:10 03/07/2023 14:47:27 Atrial fibrillation 11265431 I48.91 stable Hypertensive disorder 38 125813 I10 BP is elevated but we had to lower the lisinopril due to elevated K+ will stop lisinopril and will use amlodipine 5 mg daily and rechk bmp in a couple weeksand bp 130's /70's Hypothyroidism 56213522 E03.9 tsh is <0.1 wwe need to decrease dose to levothy Type 2 checo betes mellitus 69331209 E11.9 doing well with a1c of 5.6 and doing great amazing and we will stop the metformina nd we will drop the basaglar to 35 uwill need to rechk Advance care planning 71 5548058 Z71.89 utd Hepatitis C screening 41 6882122 Z11.59 [id number] Rangel Macdonald [facility] [address] [facility],[place] [address] 06/13/2023 13:38:31 06/13/2023 14:11:48 Aortic valve stenosis 96514176 I35.0 stable no issue Atrial fibrillation 4943 6004 I48.91 stable Hypercholesterolemia 136 55500 E78.00 stable and cont to do her current med LDL is 82 Hypertensive disorder 38 849781 I10 bp is excellent Type 2 checo betes mellitus 52180141 E11.9 doing well with a1c is 6.5 was as low of 5.6 (and we will drop the basaglar to 35 uwill need to rechk Hypothyroidism 55061520 E03.9 we willcont to follow and see how he does as lab is much better Diabetic p eripheral neuropathy 213344047 E11.40 seems stable right now [id number] Rangel Macdonald [facility] [address] [facility],[place] [address] 09/01/2023 08:41:29 09/01/2023 11:11:58 Hypercholesterolemia 02405622 E78.00 stable and cont to do her current med LDL is 82 Hypertensive disorder 38 369374 I10 bp is excellent Hypothyroidism 40993621 E03.9 we willcont to follow and see how he does as lab is much better Type 2 checo betes mellitus 46100589 E11.9 doing well with a1c is 6.5 was as low of 5.6 (and we will drop the basaglar to 35 uwill need to rechk Diabetic p eripheral neuropathy 779062267 E11.40 seems stable right now [id number] Rangel Macdonald, [facility] [address] [facility],[place] [address] [facility] [place] [address] 12/19/2023 13:42:44 12/20/2023 09:07:55 Diabetic peripheral neuropathy 112941576 E11.40 seems stable right now Hypercholesterolemia 136 80021 E78.00 stable and cont to do her current med LDL is 82 Hypertensive disorder 38 126251 I10 bp is excellent Hypothyroidism 30115578 E03.9 we willcont to follow and see how he does as lab is much better Type 2 checo betes mellitus 57009733 E11.9 doing well with a1c is 6.3 was 6.5 was as low of 5.6 (and we will drop the basaglar to 35 uwill need to rechk Atrial fibrillation 4943 6004 I48.91 stable [id number] Rangel Macdonald, [facility] [address],[place] [facility] [place] [address] 06/28/2024 13:22:02 06/28/2024 14:13:42 Adult health examination 345534696 Z00.01 pt continues to do well and has been Screening for cardiovascular system disease 524665681 Z13.6 Depression screening 171 717201 Z13.31 neg Atrial fibrillation 4943 6004 I48.91 stable doing well Aortic valve stenosis 60 846917 I35.0 stable no issue Hypothyroidism 40785054 E03.9 we will cont to follow and see how he does as lab is much better Hypertensive disorder 38 660817 I10 bp is excellent at home and sl elevated here Contusion of left knee [id number] 4365888 S80.02XA cont to manage conserv Health Concerns Section Related Observation LastModified by Organization Detai ls LastModified Time None Recorded Concern Status LastModified by Organization Details LastModified Time None Recorded Advance Directives Directive None Recorded Payers Encounter Date Sequence Insurance Name Policy Number Policy Castro Covered Member ID Castro Member ID Guarantor Name 03/07/2023 1 [place] [facility] Robert H Velma [id number] Robert Velma 03/07/2023 2 COMMONWEALTH INDEMNITY PLAN - UNICARE [id number] Robert Velma [id number] Robert Velma 06/13/2023 1 [place] [facility] Robert H Velma [id number] Robert Velma 06/13/2023 2 COMMONWEALTH INDEMNITY PLAN - UN[employer]ARE [id number] Robert Velma [id number] Robert Velma 09/01/2023 1 [place] [facility] Robert H Velma [id number] Robert Velma 09/01/2023 2 COMMONWEALTH INDEMNITY PLAN - UNICARE [id number] Robert Velma [id number] Robert Velma 12/19/2023 1 [place] [facility] Robert H Velma [id number] Robert Velma 12/19/2023 2 COMMONWEALTH INDEMNITY PLAN - UNIC[employer] [id number] Robert Velma [id number] Robert Velma 06/28/2024 1 [place] [facility] Robert H Velma [id number] Robert Velma 06/28/2024 2 [employer] INDEMNITY PLAN - [employer] [id number] Robert Velma [id number] Robert Velma Notes Date Note Type Note Provider Name and Address Organization Details Recorded Time 3 text/htm l The patient denies recent falls or recurrent falls. Denies instability, weakness, abnormal gait, or difficulties with movement. The patient wears correct, supportive shoes and is not otherwise severely visually impaired. The patient is full weight bearing and if using the assistance of a cane or walker feels supported and stable with the use of such devices. All medical conditions have been taken into account that may pose a risk for the patient for falls. Home jacque, carpets and/or rugs do not pose a challenge for the patient. The patient has been educated about the use of vitamin D supplementation for bone health and prevention of hypotensive episodes that may increase risk for fall. All question and concerns were answered to the patient's satisfaction. her for rechk for his dm and afib etca1c is 5.9 tsh is 0.01< Rangel Macdonald DO [address] [place], [address], [facility] 03/07/2023 14:26:12 3 text/htm l had a episode of sudden onset of left leg numbnesswent to hosp and admitted for observation of Rick felt he had a pinched nerve poss peroneal by the knee\covid infection after did fine with paxlovidhad full work up had a ct and mri done which did not show cva a1c is 6.5 Rangel Macdonald DO [address] [place], [address], [facility] 06/13/2023 14:10:40 4 text/htm l Care Management - DiabetesReported bypatient.Self Care:seeing eye doctor yearly for dilated eye exam; checking feet regularly; normal range of home blood sugars (in the low 100s); no side effects from medications Associated Symptoms:symptoms are usually well controlled; no fatigue; no dizziness; no excessive sweating; no headaches; no confusion; no increased thirst; no increased appetite; no increased urination; no blurred vision; no numbness of feet; no calluses on feetCare Management - HypertensionReported bypatient.Self Care:not under emotional stress Severity:symptoms are improving; does not interfere with daily activities Associated Symptoms:no dizziness; no lightheadedness; no chest pain; no shortness of breath; no palpitations; no edema; no calf muscle cramps; no blurred vision; no confusion; no headaches; no fatigue patient is evaluated via tele/video assessment per patient consent during current pandemic feels pretty good no major issuesleft index finger is sore mid knuckle is enlarged and sorelegs are goodneuropathy is the [id number] 6.3 no cp no sob Rangel Macdonald DO [address] [place], [address], [facility] ([facility] 09/01/2023 10:52:32 4 text/htm l Care Management - DiabetesReported bypatient.Self Care:seeing eye doctor yearly for dilated eye exam; checking feet regularly; normal range of home blood sugars (in the low 100s); no side effects from medications Associated Symptoms:symptoms are usually well controlled; no fatigue; no dizziness; no excessive sweating; no headaches; no confusion; no increased thirst; no increased appetite; no increased urination; no blurred vision; no numbness of feet; no calluses on feetCare Management - HypertensionReported bypatient.Self Care:not under emotional stress Severity:symptoms are improving; does not interfere with daily activities Associated Symptoms:no dizziness; no lightheadedness; no chest pain; no shortness of breath; no palpitations; no edema; no calf muscle cramps; no blurred vision; no confusion; no headaches; no fatigue here for rechk and is doing wellno majors complaints Rangel Macdonald, DO [address] [place], [address], [facility] ([facility] 12/19/2023 14:22:57 4 text/htm l Medicare Annual Wellness VisitReported bypatient.Diet and Nutrition:healthy diet Fracture Risk:no history of fractures; no recent explained fracture; no sudden unexplained fractures; no previous musculoskeletal injuries Physical Activity:exercises on a regular basis; recent increase in physical activity; good physical condition Depression Risk:never feels sad, empty, or tearful; no loss of interest in activities; no significant changes in weight; no sleep disturbances or insomnia; no agitation; no loss of energy; no feelings of worthlessness or guilt; no thoughts of suicide; no history of depression; no history of mood disorders Orientation:no disorientation to time; no disorientation to date; no disorientation to place Concentration and Memory:no decreased concentrating ability; no memory lapses or loss; does not forget words Speech/Motor difficulties:no speech difficulties; no difficulty expressing formulated concepts; no difficulty with fine manipulative tasks; no difficulty writing/copying; no slowed reaction time; does not knock things over when trying to pick them up Hearing:no loss of hearing Vision:no vision problems Activities of Daily Living:able to bathe with limited or no assistance; able to contol urination and bowels; able to dress with limited or no assistance; able to feed self with limited or no assistance; able to get out of chair or bed with limited or no assistance; able to groom with limited or no assistance; able to toilet with limited or no assistance Instrumental Activities of Daily Living:able to do house work with limited or no assistance; able to grocery shop with limited or no assistance; able to manage medications with limited or no assistance; able to manage money with limited or no assistance; able to prepare meals with limited or no assistance; able to use the phone with limited or no assistance Falls Risk Assessment:no frequent falls while walking; no fall in the past year; no fall since last visit; no dizziness/vertigo Home Safety:no unsafe jacque hazzards; no unsafe stairs; no unsafe gas appliances; working smoke/CO detectors; wears protective head gear for biking/high velocity; use of seatbelts; practicing 'safer sex'; no vision or hearing loss while driving; no fire arms; has hand bars in the bathroom/shower; good lighting in the homeNotes:reviewed lab Rangel Macdonald, DO [address] [facility], [place], [address], [facility] 06/28/2024 13:59:22
== END 2024-10-02 10:53 | disposition home or self-care (01) ==
LOC: HO.MANLDS 10:52
PROVIDERS: Visit Provider Internal Medicine
DX: Z13.89 Encounter for screening for other disorder (principal)

== ENCOUNTER 2024-10-02 11:35 | Outpatient (REF) | payer MEDICARE, OTHER, SELFPAY ==
--- OUTSIDE RECORDS SUMMARY | 2024-10-02 13:27 | XMS_ITS | Clinical Summary ---
Author Organization [facility] Address [address] [place] [address] Care Team Providers Care Electric Power Line Examiner Name Role Phone Rangel Zepeda Primary Care Provider [phone] Medications Aspirin (ST VLADIMIR) 81 MG EC [...] topic Insurance MEDICARE PART B Care Teams Electric Power Line Examiner Relationship Specialty Start Date End Date Rangel Zepeda [facility] [address] [place] [id number] PCP - General Internal Medicine 01/29/23
--- OUTSIDE RECORDS SUMMARY | 2024-10-02 13:27 | XMS_ITS | Clinical Summary ---
Author Organization [facility] Address [phone] [facility] [place] [address] Care Team Providers Care Machine Operator Transplanter Name Role Phone Amauryyanni Rangel Carina OWENS Primary Care Provider [phone] Social History Tobacco Use Types Packs/Day Years [...] Medical Devices Not on file Care Teams Machine Operator Transplanter Relationship Specialty Start Date End Date Rangel Zepeda DO PCP - General Internal Medicine 09/22/20 Additional Source Comments The information contained in this document represents components of the legal health record. It is not the complete legal health record.[facility]
[2024-10-02 13:32] LABS: Estimated Average Glucose 134 mg/dL; Hemoglobin A1C 181.7122 umol/L; Hemoglobin A1c % 6.3 % (<6.0); Total Hemoglobin (HGBA1C) 4018.6433 umol/L
[2024-10-02 13:52] LABS: Alanine Aminotransferase 22 U/L (0-40); Albumin Level 4.2 g/dL (3.5-5.0); Alkaline Phosphatase 88 U/L (39-117); Anion Gap 12 (12-20); Aspartate Amino Transferase 31 U/L (5-37); Bilirubin Total 0.4 mg/dL (0.0-1.0); Blood Urea Nitrogen 10 mg/dL (9-16); Calcium 9.5 mg/dL (8.4-10.2); Carbon Dioxide 25 mmol/L (22-29); Chloride 108 mmol/L (96-108); Cholesterol 158 mg/dL (<200); Estimated Glomerular Filt Rate > 60; Glucose Random 91 mg/dL (60-115); HDL Cholesterol 52 mg/dL (>40); LDL Cholesterol Calculated 92 mg/dL (<100); Sodium 141 mmol/L (135-145); Total Protein 7.7 g/dL (6.5-8.0); Triglycerides 73 mg/dL (<150)
[2024-10-02 14:08] LABS: Prostate Specific Antigen 1.08 ng/mL (<0.05-4.0); Thyroid Stimulating Hormone 0.31 uIU/mL (0.32-4.0)
== END 2024-10-02 11:36 | disposition home or self-care (01) ==
LOC: HO.MANLDS 11:35
PROVIDERS: Visit Provider Internal Medicine
DX: Z12.5 Encounter for screening for malignant neoplasm of prostate (principal); E11.9 Type 2 diabetes mellitus without complications; E03.9 Hypothyroidism, unspecified; E78.00 Pure hypercholesterolemia, unspecified; N40.0 Benign prostatic hyperplasia without lower urinary tract symptoms
CPT/HCPCS: 36415; 80053; 80061; 83036; 84153; 84443

== ENCOUNTER 2024-10-08 14:14 | Outpatient (REF) | payer MEDICARE, OTHER, SELFPAY ==
--- OUTSIDE RECORDS SUMMARY | 2024-10-08 15:11 | XMS_ITS | Clinical Summary ---
Author Organization [facility] Address [phone] [facility] [place] [address] Care Team Providers Care Night Cleaner Name Role Phone Amauryyanni Rangel Carina OWENS Primary Care Provider [phone] Social History Tobacco Use Types Packs/Day Years [...] Medical Devices Not on file Care Teams Night Cleaner Relationship Specialty Start Date End Date Rangel Zepeda DO PCP - General Internal Medicine 09/22/20 Additional Source Comments The information contained in this document represents components of the legal health record. It is not the complete legal health record.[facility]
--- OUTSIDE RECORDS SUMMARY | 2024-10-08 15:12 | XMS_ITS | Continuity of Care Document ---
Author Organization [place] - [facility], [facility] Address [address] [place] [address] Assessment Encounter Date Assessment Date Assessment LastModified by Organization Details LastModified Time 10/08/2024 10/08/2024 [id number] [place] [id number] ([address]) MDM HIGH MUST MEET 2 OUT OF 3 ELEMENTS: PROBLEMS, DATA OR RISK ELEMENT 1: PROBLEMS 1 OR MORE CHRONIC ILLNESS W/SEVERE EXACERBATION, PROGRESSION MAY REQUIRE HOSPITAL LEVEL CARE OR 1 ACUTE OR CHRONIC ILLNESS OR INJURY THAT POSES A THREAT TO LIFE OR BODILY FUNCTION ELEMENT 2: DATA: MUST MEET 2 OF 3 CATEGORIES CATEGORY 1 REVIEW OF PRIOR EXTERNAL NOTES REVIEW OF THE RESULTS ORDERING OF EACH TEST ASSESSMENT REQUIRING INDEPENDENT HISTORIAN(S) CATEGORY 2: INDEPENDENT INTERPRETATION OF TESTS BY ANOTHER PROVIDER/SPECIALI ST CATEGORY 3: DISCUSSION OF MGT OR TEST INTERPRETATION W/EXTERNAL PHYSICIAN/SPECIAL IST ELEMENT 3: RISK HIGH RISK OF MORBIDITY FROM ADDITIONAL DIAGNOSTIC TESTING OR TREATMENT PROVIDER MUST THOROUGHLY DOCUMENT EACH ELEMENT THAT IS COVERED The patient presented to their appointment today for multiple concerns requiring moderate to high-level decision making and took over 40-45 minutes for an adequate and appropriate history, exam, assessment and treatment plan. This appointment was done with an established patient. Not available 10/08/2024 14:06:14 Plan of Treatment Reminders Order Date Submit Date Provider Last Modified By Organization Details Last Modified Time Details Appointments FOLLOW UP 15 2024 02:00P M DR MACDONALD Not available Not available Not available FOLLOW UP 2024 02:15P M DR MACDONALD Not available Not available Not available Lab protein electroph oresis panel, serum or plasma 2024 025 [facility], [address] [place] [address], [place], [address], 10/08/2024 14:12:21 afp (alpha-fe toprotein ), serum 2024 025 [facility], [address], [place], [address], 10/08/2024 14:12:21 PSA, serum or plasma 2024 025 [facility], [address], [place], [address], 10/08/2024 14:12:21 Referral None recorded. Procedures None recorded. Surgeries None recorded. Imaging XR, chest, [email or web address] [facility], [address] [place] [address], [address], 10/08/2024 14:29:40 Medication Orders None recorded. Patient TargetsNo targets recorded. Patient InstructionsNo instructions recorded. Reason for Referral None Reported. Problems Name Problem SNOMED Code Status Onset Date Resolution Date Notes Provider Name and Address Organization Details Recorded Time Hyperten sive disorder 60433398 Active 2017 Kaelyn ortiz [facility] 8 08:44:07 Type 2 diabetes mellitus 27346353 Active 2017 Kaelyn ortiz [facility] 8 08:44:11 Hypercho lesterol emia 28667613 Active 2017 Kaelyn ortiz [facility] 8 08:44:16 Tobacco dependen ce syndrome 13963333 Completed 201702/05/2020 Rangel Macdonald, DO [address] [place] [address], [address], [facility] 0 11:49:06 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 Kaelyn ortiz [facility] 8 08:44:43 Diabetic peripher al neuropat hy 391995187 Active 2020 Rangel Macdonald, DO [address] [place] [address], [address], [facility] 1 13:53:46 Primary erectile dysfunct ion 562274764 Active 2020 Rangel Macdonald, DO [address] [place] [address], [address], [facility] 1 14:09:52 Chronic cough 90706876 Active 2022 Rangel Macdonald DO [address] [place] [address], [address], [facility] 3 15:13:26 Dyspnea on exertion 66278384 Active 2022 Rangel Macdonald DO [address] [place] [address], [address], [facility] 3 23:00:00 Atrial fibrilla tion 51731125 Active 2022 Rangel Macdonald DO [address] [place] [address], [address], [facility] 3 09:56:04 Aortic valve stenosis 12957238 Active 2022 Rangel Macdonald DO [address] [place] [address], [address], [facility] 3 16:18:34 COVID-19 371244842 Active 2022 ALDEN VÁSQUEZ [address] [place] [address], [address], [facility] 3 09:30:55 Benign prostati c hyperpla saba 456779840 Active 2023 Rangel Macdonald DO [address] [place] [address], [address], [facility] 4 15:34:00 Contusio n of left knee 2344097841 4715706 Active 2023 Rangel Macdonald DO [address] [place] [address], [address], [facility] 4 13:57:10 Notes:[place]- possi ble exposed to agent orange Problem Notes None recorded. Procedures Surgical History Date Name Laterality Status Provider Name and Address Organization Details Recorded Time 0 Colonoscopy completed Kaelyn Howard [facility] 08/07/2018 14:16:54 Imaging Results None recorded. Procedure Notes None recorded. Medical Equipment None [...] Not Available Not Available No t Available amlodipin e 5 mg tablet TAKE 1 [...] Available Not Available OneTouch Verio test strips USE TO TEST BLOOD SUGAR ONCE DAILY active Not Available Not Available No t Available Levemir FlexTouch U-100 Insulin 100 unit/mL (3 mL) subcutane ous pen Inject 30 units every day by sub-q route for 23 days. 05/08 completed Not Available Not Available Not Available Jardiance 10 mg tablet TAKE 1 TABLET BY MOUTH EVERY DAY active Not Available Not Available No t Available Basaglpastora KwikPen U-100 Insulin 100 unit/mL (3 mL) subcutane ous ADMINIST ER 45 UNITS UNDER THE SKIN EVERY DAY active Not Available Not Available No t Available Shingrix (PF) 50 mcg/0.5 mL intramusc ular [...] 2nd Gen Pen Needle 32 gauge x /32 USE TO INJECT ONCE DAILY DIRECTED active Not Available Not Available No t Available OneTouch Delica Plus Lancet 33 gauge USE TO TEST BLOOD SUGARS THREE TIMES DAILY active Not Available Not Available No t Available Fluzone High-Dose 2019-20 (PF) 180 mcg/0.5 mL intramusc ular syringe 10/08 completed Not Available Not Available Not Available Ozempic 1 mg/dose (4 mg/3 mL) subcutane ous pen injector INJECT 1MG UNDER THE SKIN EVERY WEEK active Not Available Not Available No t Available BinaxNOW COVID-19 Ag Self Test kit TEST [...] and Address Organization Details Last Updated DateTime 5 182.88 cm 26.7 kg/m2 95824.9 8 g 64 /min 98 % 98 % 144 mm[Hg] 82 mm[Hg] Kd Mackey [facility] 5 13:44:34 Social History Question Answer Notes LastModified by Organizat ion Details LastModified Time Tobacco Smoking Status Former Smoker 1 ppd Kaelyn ortiz [facility] 08/07/2018 13:50:58 What Was The Date Of Your Most Recent Tobacco Screening? 10/08/2024 [email or web address] Information not available 10/08/2024 Do You Or Have You Ever Used [...] 30 mcg/0.3 mL dose 1 completed Dawna ortiz [facility] 02/08/2022 08:31:01 COVID-19, mRNA, LNP-S, PF, 30 mcg/0.3 mL dose 2 completed Dawna ortiz [facility] 02/08/2022 08:31:13 Influenza, split virus, quadrivalent, preservative 1 completed Dawna ortiz [facility] 02/08/2022 08:31:31 Influenza, split virus, quadrivalent, preservative 8 completed Rangel Macdonald, DO [address] [place] [address], [place], [address], [facility] 07/08/2018 19:53:02 zoster live 8 completed Kaelyn ortiz [facility] 08/07/2018 13:50:26 zoster live 8 corey ortiz [facility] 08/07/2018 13:50:45 Influenza, split virus, quadrivalent, preservative 0 completed Xuan Lewis diana [facility] 05/19/2020 10:58:10 Tdap 7 completed Kaelyn Howard diana [facility] 01/12/2021 09:54:45 COVID-19, mRNA, LNP-S, PF, 30 mcg/0.3 mL dose 1 completed Kaelyn Howard diana [facility] 01/12/2021 09:55:04 COVID-19, mRNA, LNP-S, PF, 30 mcg/0.3 mL dose 1 completed Kaelyn Howard diana [facility] 01/12/2021 09:55:08 Past Encounters Encounter ID Performer Location Encounter Start Date Encounter Closed Date Diagnosis/Indication Diagnosis SNOMED-CT Code Diagnosis ICD10 Code Diagnosis Note [id number] Rangel Macdonald [facility] [address] [address] 10/08/2024 13:32:25 10/08/2024 14:29:40 Atrial fibrillation 91070788 I48.91 stable doing well Hypercholesterolemia 136 32428 E78.00 stable and cont to do her current med LDL is 82 Hypertensive disorder 38 620533 I10 bp is excellent at home and sl elevated here Type 2 checo betes mellitus 30089424 E11.9 doing well with a1c is 6.3 was 6.3 was as low of 5.6 (and we will drop the basaglar to 35 uwill need to rechk Hypothyroidism 32269958 E03.9 we will cont to follow and see how he does as lab is much better Exposure t o Agent [place] 632908108 Z77.29 smoking history as well we will get a cxr Health Concerns Section Related Observation LastModified by Organization Detai ls LastModified Time None Recorded Concern Status LastModified by Organization Details LastModified Time None Recorded Payers Encounter Date Sequence Insurance Name Policy Number Policy Castro Covered Member ID Castro Member ID Guarantor Name 10/08/2024 1 MEDICARE B-[place]: [employer] Robert Carreon [id number] Robert Carreon 10/08/2024 2 [facility] INDEMNITY PLAN - [facility] [id number] Robert Carreon [id number] Robert Carreon Notes Date Note Type Note Provider Name a nd Address Organization Details Recorded Time 10/08/2024 text/html here for r echk and is doing well wgupbzsy3d is 6.3no cp o sob feels [employer]leeping [employer] controlled Rangel Macdonald, DO [address], [place], [address], [facility] 10/08/2024 14:12:16
--- OUTSIDE RECORDS SUMMARY | 2024-10-08 15:12 | XMS_ITS | Clinical Summary ---
Author Organization [facility] Address [address] [place] [address] Care Team Providers Care Utility Aircrewman Name Role Phone Rangel Zepeda Primary Care Provider [phone] Medications Aspirin (ST VLADIMIR) 81 MG EC [...] topic Insurance MEDICARE PART B Care Teams Utility Aircrewman Relationship Specialty Start Date End Date Rangel Zepeda [facility] [address] [place] [id number] PCP - General Internal Medicine 01/29/23
--- OUTSIDE RECORDS SUMMARY | 2024-10-08 15:12 | XMS_ITS | Data Portability ---
Author Organization [facility], Home Service Address [address] [place] [address] Assessment Encounter Date Assessment Date Assessment LastModified by Organization Details LastModified Time 09/01/2023 09/01/2023 [id number] [place] [id number] (ROVING HAULER) MDM MODERATE MUST MEET 2 OUT OF [...] COVERED Not available 09/01/2023 10:52:06 12/19/2023 12/19/2023 [id number] [place] [id number] (ROVING HAULER) MDM MODERATE MUST MEET 2 OUT OF [...] promote healthy living. Not available 03/27/2024 14:05:15 10/08/2024 10/08/2024 [id number] [place] [address] (ROVING HAULER) MDM HIGH MUST MEET 2 OUT OF [...] available Not available Not available FOLLOW UP 15 2024 02:15P M DR MACDONALD Not available Not available Not available Lab lipid panel, blood 2023 024 [facility], [address] [place] [address], [place], [address], 06/28/2024 13:59:25 CBC w/ auto diff 2023 024 [facility], [address] [place] [address], [place], [address], 06/28/2024 13:59:25 CMP, serum or plasma 2023 024 [facility], [address] [place] [address], [address], 06/28/2024 13:59:25 protein electroph oresis panel, serum or plasma 2024 025 [facility], [address] [place] [address], [address], 10/08/2024 14:12:21 afp (alpha-fe toprotein ), serum 2024 025 [facility], [address] [place] [address], [address], 10/08/2024 14:12:21 PSA, serum or plasma 2024 025 [facility], [address] [place] [address], [address], 10/08/2024 14:12:21 Referral None recorded. Procedures None recorded. Surgeries None recorded. Imaging XR, knee, 3 view 2023 024 [facility] [address] [place] [address], [address], 07/12/2024 08:23:31 XR, chest, 2 view 2024 025 [email or web address] [facility], [address] [place] [address], [address], 10/08/2024 14:29:40 Medication Orders None recorded. Patient TargetsNo targets recorded. Patient Instructions Encounter Date Encounter Id Patient Instructions Last Modified By Organization Details Last Modified Time 06/13/2023 [id number] atrial fibrillation: care instructions Not available 06/13/2023 14:08:18 aortic valve stenosis: care instructions Not available 06/13/2023 14:08:18 12/19/2023 [id number] atrial fibrillation: care instructions Not available 12/19/2023 14:21:27 06/28/2024 [id number] atrial fibrillation: care instructions Not available 06/28/2024 [...] Abnormal Flag Note LastModifiedBy Organization Detail LastModifiedTime Result Notes None recorded. Problems Name Problem SNOMED Code Status Onset Date Resolution Date Notes Provider Name and Address Organization Details Recorded Time Hyperten sive disorder 58909514 Active 2017 Kaelyn ortiz [facility] 8 08:44:07 Type 2 diabetes mellitus 32429704 Active [address] 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 Kaelyn ortiz [facility] 8 08:44:43 Diabetic peripher al neuropat hy 576449817 Active 2020 Rangel Macdonald DO [address] [place] [address], [address], [facility] 1 13:53:46 Primary erectile dysfunct ion 728311533 Active 2020 Rangel Macdonald, DO [address] [place] [address], [address], [facility] 1 14:09:52 Chronic cough 35761977 Active 2022 Rangel Macdonald DO [address] [place] [address], [address], [facility] 3 15:13:26 Dyspnea on exertion 82341198 Active 2022 Rangel Macdonald DO [address] [place] [address], [address], [facility] 3 23:00:00 Atrial fibrilla tion 26656681 Active 2022 Rangel Macdonald DO [address] [place] [address], [address], [facility] 3 09:56:04 Aortic valve stenosis 05364020 Active 2022 Rangel Macdonald, DO [address] [place] [address], [address], [facility] 3 16:18:34 COVID-19 183295457 Active 2022 ALDEN VÁSQUEZ [address] [place] [address], [address], [facility] 3 09:30:55 Benign prostati c hyperpla saba 874231430 Active 2023 Rangel Macdonald DO [address] [place] [address], [address], [facility] 4 15:34:00 Contusio n of left knee 8524025102 4385209 Active 2023 Rangel Macdonald DO [address] [place] [address], [address], [facility] 4 13:57:10 Notes:[place]- possi ble exposed to agent orange Problem Notes None recorded. Procedures Surgical History Date Name Laterality Status Provider Name and Address Organization Details Recorded Time 0 [facility] 08/07/2018 14:16:54 Imaging Results None [...] 2nd Gen Pen Needle 32 gauge x USE TO INJECT ONCE DAILY DIRECTED active [...] Updated DateTime 3 183.52 cm 26.4 kg/m2 00751.1 g 63 /min 98 % 98 % 120 mm[Hg] 68 mm[Hg] Rosey Marshall [facility] 3 13:53:13 Date Recorded Body height Body mass index (BMI) Body weight Heart rate Oxygen saturation Oxygen saturation in Arterial blood by Pulse oximetry Systolic blood pressure Diastolic blood pressure Provider Name and Address Organization Details Last Updated DateTime 4 183.52 cm 27.2 kg/m2 81726.7 4 g 70 /min 98 % 98 % 152 mm[Hg] 84 mm[Hg] Brittani Perez [facility] 4 13:56:01 Date Recorded Body height Body mass index (BMI) Body weight Heart rate Oxygen saturation Oxygen saturation in Arterial blood by Pulse oximetry Systolic blood pressure Diastolic blood pressure Provider Name and Address Organization Details Last Updated DateTime 4 182.88 cm 27.4 kg/m2 37365.6 6 g 62 /min 96 % 96 % 140 mm[Hg] 84 mm[Hg] Kd Mackey [facility] 4 13:31:49 Date Recorded Body height Body mass index (BMI) Body weight Heart rate Oxygen saturation Oxygen saturation in Arterial blood by Pulse oximetry Systolic blood pressure Diastolic blood pressure Provider Name and Address Organization Details Last Updated DateTime 5 182.88 cm 26.7 kg/m2 41404.9 8 g 64 /min 98 % 98 % 144 mm[Hg] 82 mm[Hg] Kd Mackey [facility] 5 13:44:34 Social History Question Answer Notes LastModified by Organizat ion Details LastModified Time Tobacco Smoking Status Former Smoker 1 ppd Kaelyn ortiz [facility] 08/07/2018 13:50:58 What Was The Date [...] 30 mcg/0.3 mL dose [facility] 08:31:01 COVID-19, mRNA, LNP-S, PF, 30 mcg/0.3 mL dose 2 [facility]/08/2022 08:31:13 Influenza, split virus, quadrivalent, preservative 1 [facility] 02/08/2022 08:31:31 Influenza, split virus, quadrivalent, preservative 8 completed Rangel Macdonald DO [address] [place] [address], [address], [facility] 07/08/2018 19:53:02 zoster live [address] [facility] 08/07/2018 13:50:26 zoster live 8 [facility] 08/07/2018 13:50:45 Influenza, split virus, quadrivalent, preservative 0 [facility] 05/19/2020 10:58:10 Tdap [address] [facility] 01/12/2021 09:54:45 COVID-19, mRNA, LNP-S, PF, 30 mcg/0.3 mL dose 1 completed Kaelyn ortiz [facility] 01/12/2021 09:55:04 COVID-19, mRNA, LNP-S, PF, 30 mcg/0.3 mL dose 1 [facility] 01/12/2021 09:55:08 Past Encounters Encounter ID Performer Location Encounter Start Date Encounter Closed Date Diagnosis/Indication Diagnosis SNOMED-CT Code Diagnosis ICD10 Code Diagnosis Note [id number] [facility] [address] [facility] [address] 04/11/2018 15:28:28 04/11/2018 16:21:21 Hypertensive disorder 92735930 I10 here and is doing well w bp states Hypothyroidism 65524461 E03.9 need to have this eval next visit Type 2 checo betes mellitus 39809792 E11.9 doing well with 6.6 and will cont with 30 units of levemir [id number] Rangel Macdonald [facility] [address] [facility],[place] [address] 08/07/2018 13:40:30 08/07/2018 15:35:47 Hypertensive disorder 64641966 I10 here and is doing well w bp states Hypothyroidism 28847285 E03.9 need to have this eval next visit Type 2 checo betes mellitus 02160747 E11.9 doing well with 6.0 and will cont with 30 units of levemir Tobacco de pendence syndrome 61902788 F17.200 many warnings Abdominal aortic aneurysm screening 447732464 Z13.6 [id number] Rangel Macdonald [facility] [address] [facility],[place] [address] 12/04/2018 13:40:30 12/04/2018 14:50:14 Adult health examination 175191565 Z00.01 wish he would quit smoking Active or passive immunization 594454622 Z23 Tobacco de pendence syndrome 84726370 F17.200 many many warnings [id number] Rangel Macdonald [facility] [address] [facility],[place] [address] 03/18/2019 11:11:10 03/18/2019 12:06:43 Type 2 diabetes mellitus 81091075 E11.9 doing well with 5.9 and will cont with 30 units of basaglar Hypothyroidism 05714508 E03.9 need to have this eval next visit Hypertensive disorder 38 783044 I10 here and is doing well w bp states [id number] Rangel Macdonald [facility] Internal [facility] [address] [facility] [place] [address] 07/02/2019 13:46:23 07/02/2019 14:40:50 Type 2 diabetes mellitus 16470829 E11.9 doing well with 5.9 and will cont with 30 units of basaglar Hypothyroidism 08691507 E03.9 need to have this eval next visit Hypertensive disorder 38 829287 I10 here and is doing well but given elevated K+ we will need to stop the lisinopril and rechk in a week or so pt will monitor his bp at home Hypercholesterolemia 136 34156 E78.00 stable Hyperkalemia 01201430 E8 7.5 will stop the lisinopril l no signs of RTA type [id number] [facility] Internal Medicine [address] [facility] [place] [address] 10/08/2019 13:16:33 10/08/2019 14:29:53 Hypercholesterolemia 40984003 E78.00 stable and cont to do her current med Hypertensive disorder 38 775535 I10 BP is stable Type 2 checo betes mellitus 75572572 E11.9 doing well with 6.5 and will cont with 30 units of basaglar [id number] [facility] Medicine [address] [facility] [place] [address] 02/05/2020 10:46:08 02/05/2020 12:02:11 Type 2 diabetes mellitus 39119533 E11.9 doing well lyxzjx2m 6.3 was 6.5 and will cont with 30 units of basaglar we lilly try to get him the ozempic and then get off the basaglar Hypertensive disorder 38 486601 I10 BP is stable Hypercholesterolemia 136 01187 E78.00 stable and cont to do her current med Hypothyroidism 80916891 E03.9 need to have this eval next visit Tobacco de pendence syndrome 03793634 F17.200 many many warnings AND HE HAS FINALLY STOPPED!!! !! as of sep this year [id number] Rangel Macdonald [facility] Internal Medicine [address] [facility] [place] [address] 05/19/2020 10:45:44 05/19/2020 14:21:52 Administration of influenza vaccine 59066457 Z23 [id number] [facility] Internal Medicine [address] [facility] [place] [address] 05/25/2020 10:30:17 05/25/2020 11:54:52 Type 2 diabetes mellitus 66987372 E11.9 doing well with a1c was 6.0 6.3 was 6.5 and will decrease the insulin to 25 units of basaglar we lilly try to get him the ozempic and then get off the basaglar Hypothyroidism 06527754 E03.9 need to have this eval next visit Hypertensive disorder 38 319615 I10 BP is elevated but we had to lower the lisinopril due to elevated K+ will stop lisinopril and will use amlodipine 5 mg daily and rechk bmp in a couple weeks Hypercholesterolemia 136 12558 E78.00 stable and cont to do her current med LDL is 82 Hyperkalemia 02805683 E8 7.5 will stop the lisinopril no signs of RTA type 4 [id number] Rangel Macdonald [facility] Internal Medicine [address] [facility],[place] [address] 09/28/2020 08:42:39 09/28/2020 13:33:00 Hypertensive disorder 27275573 I10 BP is elevated but we had to lower the lisinopril due to elevated K+ will stop lisinopril and will use amlodipine 5 mg daily and rechk bmp in a couple weeks Type 2 checo betes mellitus 90748988 E11.9 doing well with a1c was 6.3 was 6.0 6.3 was 6.5 and will decrease the insulin to 25 units of basaglar we lilly try to get him the ozempic and then get off the basaglar Hypothyroidism 71765128 E03.9 need to have this eval next visit tsh will be ordered [id number] [facility] Medicine [address] [facility],[place] [address] 01/13/2021 13:19:53 01/13/2021 14:43:35 Adult health examination 611241524 Z00.01 pt continues to do well and has been Screening for malignant neoplasm of colon 830272124 Z12.11 Type 2 checo betes mellitus 02657730 E11.9 doing well with a1c was 6.3 was 6.0 6.3 was 6.5 and will decrease the insulin to 25 units of basaglar [id number] Rangel Macdonald [facility] [address] [facility],[place] [address] 05/25/2021 08:14:51 05/25/2021 15:09:07 Hypertensive disorder 58400079 I10 BP is elevated but we had to lower the lisinopril due to elevated K+ will stop lisinopril and will use amlodipine 5 mg daily and rechk bmp in a couple weeksand bp 130's /70's Hypercholesterolemia 136 43808 E78.00 stable and cont to do her current med LDL is 82 Type 2 checo betes mellitus 32346375 E11.9 doing well with a1c is 6.8 AND was 6.3 was 6.0 6.3 was 6.5 and will decrease the insulin to 25 units of basaglar Hypothyroidism 05435060 E03.9 need to have this eval next visit tsh will be ordered [id number] Rangel Macdonald [facility] Internal Medicine [address] [facility],[place] [address] 10/22/2021 07:57:18 10/25/2021 14:00:09 Hypertensive disorder 87806123 I10 BP is elevated but we had to lower the lisinopril due to elevated K+ will stop lisinopril and will use amlodipine 5 mg daily and rechk bmp in a couple weeksand bp 130's /70's Type 2 checo betes mellitus 04648342 E11.9 doing well with a1c of 7.3 but was 6.8 AND was 6.3 was 6.0 6.3 was 6.5will need to rechk 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 we will have him get his sugars better [id number] Rangel Macdonald [facility] Internal Medicine [address] [facility],[place] [address] 02/14/2022 12:03:28 02/18/2022 08:08:03 Diabetic peripheral neuropathy 455377331 E11.40 Hypertensive disorder 38 565099 I10 BP is elevated but we had to lower the lisinopril due to elevated K+ will stop lisinopril and will use amlodipine 5 mg daily and rechk bmp in a couple weeksand bp 130's /70's Hypothyroidism 09815360 E03.9 need to have this eval next visit tsh will be ordered Type 2 checo betes mellitus 50752877 E11.9 doing well with a1c of 7.3 but was 6.8 AND was 6.3 was 6.0 6.3 was 6.5will need to rechk [id number] Rangel Macdonald [facility] Internal Medicine [address] [facility] [address] 05/20/2022 13:17:37 05/20/2022 15:51:47 Type 2 diabetes mellitus 55467081 E11.9 doing well with a1c of 5.6 and doing great amazing and we will stop the metformina nd we will drop the basaglar to 35 uwill need to rechk Hypothyroidism 68798949 E03.9 tsh is <0.1 wwe need to decrease dose to levothy Hypertensive disorder 38 346317 I10 BP is elevated but we had to lower the lisinopril due to elevated K+ will stop lisinopril and will use amlodipine 5 mg daily and rechk bmp in a couple weeksand bp 130's /70's Diabetic p eripheral neuropathy 501355077 E11.40 [id number] Rangel Macdonald [facility] Internal Medicine [address] [facility], [place] [address] 10/31/2022 14:00:19 10/31/2022 15:28:52 Active or passive immunization 384553387 Z23 Adult heal th examination 169553240 Z00.00 pt continues to do well and has been Diabetic p eripheral neuropathy 257435295 E11.40 seems stable right now Type 2 checo betes mellitus 72028794 E11.9 doing well with a1c of 5.6 and doing great amazing and we will stop the metformina nd we will drop the basaglar to 35 uwill need to rechk Hepatitis C screening 41 1908865 Z11.59 Advance care planning 71 7873108 Z71.89 utd Uncontroll ed type 2 diabetes mellitus 255076757 E11.65 Exposure t o Agent [place] 956761570 Z77.29 smoking history [id number] Rangel Macdonald [facility] Internal Medicine [address] [facility] [place] [address] 03/07/2023 13:28:10 03/07/2023 14:47:27 Atrial fibrillation 12533470 I48.91 stable Hypertensive disorder 38 399844 I10 BP is elevated but we had to lower the lisinopril due to elevated K+ will stop lisinopril and will use amlodipine 5 mg daily and rechk bmp in a couple weeksand bp 130's /70's Hypothyroidism 36844607 E03.9 tsh is <0.1 wwe need to decrease dose to levothy Type 2 checo betes mellitus 94700228 E11.9 doing well with a1c of 5.6 and doing great amazing and we will stop the metformina nd we will drop the basaglar to 35 uwill need to rechk Advance care planning 71 9810714 Z71.89 utd Hepatitis C screening 41 2831982 Z11.59 [id number] Rangel Macdonald [facility] Internal Medicine [address] [facility],[address] [employer] [facility] [place] [address] 06/13/2023 13:38:31 06/13/2023 14:11:48 Aortic valve stenosis 44168654 I35.0 stable no issue Atrial fibrillation 4943 6004 I48.91 stable Hypercholesterolemia 136 83160 E78.00 stable and cont to do her current med LDL is 82 Hypertensive disorder 38 140801 I10 bp is excellent Type 2 checo betes mellitus 68857981 E11.9 doing well with a1c is 6.5 was as low of 5.6 (and we will drop the basaglar to 35 uwill need to rechk Hypothyroidism 02481222 E03.9 we willcont to follow and see how he does as lab is much better Diabetic p eripheral neuropathy 876015346 E11.40 seems stable right now [id number] Rangel Macdonald [facility] Internal Medicine [address] [facility],[place] [address] 09/01/2023 08:41:29 09/01/2023 11:11:58 Hypercholesterolemia 76955278 E78.00 stable and cont to do her current med LDL is 82 Hypertensive disorder 38 317391 I10 bp is excellent Hypothyroidism 80325446 E03.9 we willcont to follow and see how he does as lab is much better Type 2 checo betes mellitus 90359165 E11.9 doing well with a1c is 6.5 was as low of 5.6 (and we will drop the basaglar to 35 uwill need to rechk Diabetic p eripheral neuropathy 593926894 E11.40 seems stable right now [id number] Rangel Macdonald [facility] Internal Medicine [address] [facility], it[place] [facility] [place] [address] 12/19/2023 13:42:44 12/20/2023 09:07:55 Diabetic peripheral neuropathy 284584480 E11.40 seems stable right now Hypercholesterolemia 136 17427 E78.00 stable and cont to do her current med LDL is 82 Hypertensive disorder 38 475728 I10 bp is excellent Hypothyroidism 73801930 E03.9 we willcont to follow and see how he does as lab is much better Type 2 checo betes mellitus 71591966 E11.9 doing well with a1c is 6.3 was 6.5 was as low of 5.6 (and we will drop the basaglar to 35 uwill need to rechk Atrial fibrillation 4943 6004 I48.91 stable [id number] Rangel Macdonald [facility] Internal Medicine [address] [facility], [employer] [facility] [place] [address] 06/28/2024 13:22:02 06/28/2024 14:13:42 Adult health examination 894227114 Z00.01 pt continues to do well and has been Screening for cardiovascular system disease 469181170 Z13.6 Depression screening 171 681658 Z13.31 neg Atrial fibrillation 4943 6004 I48.91 stable doing well Aortic valve stenosis 60 291679 I35.0 stable no issue Hypothyroidism 78837700 E03.9 we will cont to follow and see how he does as lab is much better Hypertensive disorder 38 209933 I10 bp is excellent at home and sl elevated here Contusion of left knee 6990196889 0524529 S80.02XA cont to manage conserv [id number] Rangel Macdonald [facility] Internal Medicine [address] [facility] [place] [address] 10/08/2024 13:32:25 10/08/2024 14:29:40 Atrial fibrillation 54090634 I48.91 stable doing well Hypercholesterolemia 136 73905 E78.00 stable and cont to do her current med LDL is 82 Hypertensive disorder 38 510508 I10 bp is excellent at home and sl elevated here Type 2 checo betes mellitus 43917828 E11.9 doing well with a1c is 6.3 was 6.3 was as low of 5.6 (and we will drop the basaglar to 35 uwill need to rechk Hypothyroidism 50747554 E03.9 we will cont to follow and see how he does as lab is much better Exposure t o Agent [place] 454520277 Z77.29 smoking history as well we will get a cxr Health Concerns Section Related Observation LastModified by Organization Detai ls LastModified Time None Recorded Concern Status LastModified by Organization Details LastModified Time None Recorded Advance Directives Directive None Recorded Payers Encounter Date Sequence Insurance Name Policy Number Policy Castro Covered Member ID Castro Member ID Guarantor Name 06/13/2023 1 [place] [employer] Robert H Velma [id number] Robert Velma 06/13/2023 2 COMMONWEALTH INDEMNITY PLAN - UNICARE [id number] Robert Velma [id number] Robert Velma 09/01/2023 1 [place] [employer] Robert H Velma [id number] Robert Velma 09/01/2023 2 COMMONWEALTH INDEMNITY PLAN - UNICARE [id number] Robert Velma [id number] Robert Velma 12/19/2023 1 [place] [employer] Robert H Velma [id number] Robert Velma 12/19/2023 2 COMMONWEALTH INDEMNITY PLAN - UNICARE [id number] Robert Velma [id number] Robert Velam 06/28/2024 1 [place] [employer] Robert H Velma [id number] Robert Velma 06/28/2024 2 COMMONWEALTH INDEMNITY PLAN - UNICARE [id number] Robert Velma [id number] Robert Velma 10/08/2024 1 [place] [employer] Robert H Velma [id number] Robert Velma 10/08/2024 2 COMMONWEALTH INDEMNITY PLAN - UNICARE [id number] Robert Velma [id number] Rboert Carreon Notes Date Note Type Note Provider Name and Address Organization Details Recorded Time 3 text/htm gus had a episode of sudden onset of left leg numbnesswent to hosp and admitted for observation of Rick felt he had a pinched nerve poss peroneal by the knee\covid infection after did fine with paxlovidhad full work up had a ct and mri done which did not show cva a1c is 6.5 Rangel Macdonald DO [address] [place], [address], [facility] 06/13/2023 14:10:40 4 text/htm l [...] enlarged and sorelegs are goodneuropathy is the crojn9n 6.3 no cp no sob Rangel Macdonald DO [address] [place], [address], [facility] 09/01/2023 10:52:32 4 text/htm l [...] wellno majors complaints Rangel Macdonald, DO [address] [place], [phone], [facility] 12/19/2023 14:22:57 4 text/htm l [...] good lighting in the homeNotes:reviewed lab Rangel Macdonald DO [address] [place] [address], [id number], [facility] 06/28/2024 13:59:22 5 text/htm l here for r mindy and is doing well [id number] is 6.3no cp o sob feels wellsleeping okappetite controlled Rangel Macdonald DO [address] [place] [address], [phone], [facility] 10/08/2024 14:12:16
[2024-10-08 19:07] LABS: Prostate Specific Antigen 1.07 ng/mL (<0.05-4.0)
[2024-10-10 11:04] LABS: Alpha Fetoprotein 2.2 ng/mL (<6.1)
[2024-10-11 08:58] LABS: Prot Elec - Albumin 3.9 g/dL (3.8-4.8); Prot Elec - Alpha1 0.3 g/dL (0.2-0.3); Prot Elec - Alpha2 0.9 g/dL (0.5-0.9); Prot Elec - Beta 1 0.4 g/dL (0.4-0.6); Prot Elec - Beta 2 0.5 g/dL (0.2-0.5); Prot Elec - Gamma 0.7 g/dL (0.8-1.7); Prot Elec - Total Protein 6.7 g/dL (6.1-8.1)
== END 2024-10-08 14:15 | disposition home or self-care (01) ==
LOC: HO.MANLDS 14:14
PROVIDERS: Visit Provider Internal Medicine
DX: Z12.5 Encounter for screening for malignant neoplasm of prostate (principal); Z77.29 Contact with and (suspected) exposure to other hazardous substances
CPT/HCPCS: 36415; 82105; 84153; 84165

== ENCOUNTER 2025-01-01 09:58 | Outpatient (REF) | payer MEDICARE, OTHER, SELFPAY ==
--- OUTSIDE RECORDS SUMMARY | 2025-01-01 11:02 | XMS_ITS | Referral Summary ---
Author Organization [facility] Address [address] [place] [address] Care Team Providers Care Nurse Case Manager Name Role Phone Rangel Zepeda Primary Care Provider [phone] Allergies No known active allergies Social History Tobacco Use Types Packs/Day Years Used Date Smoking Tobacco: Never Assessed Sex and Gender Information Value Date Recorded Sex Assigned at Not on file Legal Sex Male 5:52 PM EDT Gender Identity Not on file Sexual Orientation Not on file Last Filed Vital Signs Vital Sign Reading Time Taken Comments Blood Pressure 120/70 03/05/2010 1:59 PM EDT Pulse 80 03/05/2010 1:56 PM EDT Temperature - - Respiratory Rate - - Oxygen Saturation - - Inhaled Oxygen Concentration - - Weight 101.2 kg (223 lb) 03/05/2010 1:56 PM EDT Height 185.4 cm (6' 1 ) 03/05/2010 1:56 PM EDT Body Mass Index 29.42 03/05/2010 1:56 PM EDT Plan of Treatment Not on file Procedures * Due to [place] [employer] law, this organization might not be sharing negative HIV tests. Procedure Name Priority Date/Time Associated Diagnosis Comments XR CHEST 2 VW Routine 10/23/2024 9:43 AM EST Exposure to Agent [place] from Last 3 Months Results * Due to [place] [employer] law, this organization might not be sharing negative HIV tests. * X-Ray Chest 2 Views (10/23/2024 9:43 AM EST) Anatomical Region Laterality Modality Body Computed Radiogr aphy 10/23/2024 2:34 PM EST Impressions 10/23/2024 2:34 PM EST Negative. Heart normal. ??Lungs clear. If this radiology report contains a blank impression section, it is an incomplete radiology report. ??Please contact the interpreting radiologist or applicable radiology division as soon as possible to obtain the completed interpretation. ? Workstation ID: [id number] Narrative 10/23/2024 2:34 PM EST COMPARISON: ??None FINDINGS AND Resulting Agency Comment [id number] Procedure Note Mitchell Bowden MD - 10/23/2024 COMPARISON: None FINDINGS AND IMPRESSION: Negative. Heart normal. Lungs clear. If this radiology report contains a blank impression section, it is anincomplete radiology report. Please contact the interpreting radiologistor applicable radiology division as soon as possible to obtain thecompleted interpretation. Workstation ID: [id number] us Rangel Bigda IMG XR PROCEDURES Final Result from Last 3 Months Insurance MEDICARE [facility] Care Teams Nurse Case Manager Relationship Specialty Start Date End Date Rangel Zepeda [address] [place] [id number] PCP - General Internal Medicine 01/27/21
--- OUTSIDE RECORDS SUMMARY | 2025-01-01 11:02 | XMS_ITS | Clinical Summary ---
Author Organization [facility] Address [address] [address] Phone Care Team Providers Care Tobacco Drying Machine Operator Name Role Phone Amauryyanni Rangel Carina OWENS Primary Care Provider [phone] Social History Tobacco Use Types Packs/Day Years [...] Medical Devices Not on file Care Teams Tobacco Drying Machine Operator Relationship Specialty Start Date End Date Rangel Zepeda DO [email or web address] PCP - General Internal Medicine 09/22/20 Additional Source Comments The information contained in this document represents components of the legal health record. It is not the complete legal health record.[facility]
--- OUTSIDE RECORDS SUMMARY | 2025-01-01 11:02 | XMS_ITS | Clinical Summary ---
Author Organization [facility] Address [address] [place] [address] Care Team Providers Care Fisher Lampara Net Name Role Phone Rangel Zepeda Primary Care Provider [phone] Allergies No known active allergies Social History [...] 03/05/2010 1:56 PM EDT Plan of Treatment Health Maintenance Due Date Last Done Comments Hepatitis C Screening 1950 Medicare AWV 1951 Pneumococcal Vaccine: 50+ Years (1 of 1 - PCV) 1998 Zoster Vaccines (2 of 3) 05/08/2018 03/13/2018, 10/27 RSV Vaccine (60+ years old and patients) (1 - 1-dose 75+ series) 2023 COVID-19 Vaccine ( - 2023- season) 2024 07/09/2022, 11/26/2021, 06/04/2021, Additional history exists Alcohol/Substance Use Screening 08/28/2024 Depression Screening and Follow-Up 08/28/2024 Health Care Proxy Review 08/28/2024 [employer] Annual Screening 08/28/2024 Influenza Vaccine (Season Ended) 2025 07/31/2023, 06/02/2022, 06/11/2021, Additional history exists DTaP,Tdap,and Td Vaccines (2 - Td or Tdap) 11/02/2026 11/02/2016 Hepatitis B Vaccines Aged Out No long er eligible based on patient's age to complete this topic Procedures * Due to [place] [employer] law, this organization might not be sharing negative HIV tests. Procedure Name Priority Date/Time Associated Diagnosis Comments XR CHEST 2 VW Routine 10/23/2024 9:43 AM EST Exposure to Agent [place] from Last 3 Months Results * Due to [place] [employer] law, this organization might not be sharing [...] obtain the completed interpretation. ? Workstation ID: [id number] Narrative 10/23/2024 2:34 PM EST COMPARISON: ??None FINDINGS AND Resulting Agency Comment [id number] Procedure Note Mitchell Bowden MD - 10/23/2024 COMPARISON: None FINDINGS AND IMPRESSION: Negative. Heart normal. Lungs clear. If this radiology report contains a blank impression section, it is anincomplete radiology report. Please contact the interpreting radiologistor applicable radiology division as soon as possible to obtain thecompleted interpretation. Workstation ID: [id number] us Rangel Bigda IMG XR PROCEDURES Final Result from Last 3 Months Insurance MEDICARE [facility] Care Teams Fisher Lampara Net Relationship Specialty Start Date End Date Katelyn Rangel [address] [place] [phone] PCP - General Internal Medicine 01/27/21
--- OUTSIDE RECORDS SUMMARY | 2025-01-01 11:02 | XMS_ITS | Clinical Summary ---
Author Organization [facility] Address [address] [place] [address] Care Team Providers Care Accounting Specialist Name Role Phone Rangel Zepeda Primary Care Provider [phone] Medications Aspirin (ST VLADIMIR) 81 MG EC [...] (Fluzone HD) 04/24/2019,07/07/2018 Influenza,high-dose, Quadrivalent 07/31/2023,01/2022 Influenza,injectable,quad,preservative 0 Tdap 11/02/2016 Zoster (Zostavax) 03/13/2018,11/22/2017 Social History [...] 07/09/2022, 11/26/2021, 06/04/2021, Additional history exists Influenza (Season Ended) 2025 023, 06/02/2022, 06/11/2021, Additional history exists DTaP/Tdap/Td (2 - [...] topic Insurance MEDICARE PART B Care Teams Accounting Specialist Relationship Specialty Start Date End Date Rangel Zepeda [facility] [address] [place] [id number] PCP - General Internal Medicine 01/29/23
--- OUTSIDE RECORDS SUMMARY | 2025-01-01 11:02 | XMS_ITS | Data Portability ---
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) MDM HIGH MUST MEET 2 OUT OF [...] Time Details Appointments FOLLOW UP 15 2024 02:15P Sonya MACDONALD Not available Not available Not available Lab protein electroph oresis panel, serum or plasma 2024 025 [facility], [address] [facility], [place], [address], 10/08/2024 14:12:21 afp (alpha-fe toprotein ), serum 2024 025 [facility], [address] [facility], [place], [address], 10/11/2024 12:19:13 PSA, serum or plasma 2024 025 [facility], [address] [place] [address], [address], 10/09/2024 12:28:40 lipid panel, blood 2023 024 [facility], [address] [place] [address], [address], 06/28/2024 13:59:25 CBC w/ auto diff 2023 024 [facility], [address] [place] [address], [address], 06/28/2024 13:59:25 CMP, serum or plasma 2023 024 [facility], [address] [place] [address], [id number], 06/28/2024 13:59:25 Referral None recorded. Procedures None recorded. Surgeries None recorded. Imaging XR, chest, 2 view 2024 025 [email or web address] [facility], [address] [place] [address], [address], 10/08/2024 14:29:40 XR, knee, 3 view 2023 024 [facility] ([facility] Scheduling For [facility]), [address] [place] [address], [address], 07/12/2024 08:23:31 Medication Orders None recorded. Patient TargetsNo targets recorded. Patient Instructions Encounter Date Encounter Id Patient Instructions Last Modified By Organization Details Last Modified Time 06/13/2023 [id number] atrial fibrillation: care instructions Not available 06/13/2023 14:08:18 aortic valve stenosis: care instructions Not available 06/13/2023 14:08:18 12/19/2023 [id number] atrial fibrillation: care instructions Not available 12/19/2023 14:21:27 06/28/2024 [id number] atrial fibrillation: care instructions Not available 06/28/2024 [...] Abnormal Flag Note LastModifiedBy Organization Detail LastModifiedTime 10/23/1910/23/2024 XR, chest , 2 view No observ ation record ed. [facility] (Xrays Only) [address] [place], [address], 10/23/2024 14:54:47 Result Notes None recorded. Problems Name Problem SNOMED Code Status Onset Date Resolution Date Notes Provider Name and Address Organization Details Recorded Time Hyperten sive disorder 58914672 Active 2017 [facility] 8 08:44:07 Type 2 diabetes mellitus 48816366 Active 2017 [facility] 8 08:44:11 Hypercho lesterol emia 31585902 Active 2017 [facility] 8 08:44:16 Tobacco dependen ce syndrome 30415850 Completed 201702/05/2020 Rangel Macdonald, DO [address], [place], [address], [facility] 0 11:49:06 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 [facility] 8 08:44:43 Diabetic peripher al neuropat hy 463604058 Active 2020 Rangel Macdonald, DO [address] [place] [address], [address], [facility] 1 13:53:46 Primary erectile dysfunct ion 579265235 Active 2020 Rangel Macdonald, DO [address] [place] [address], [address], [facility] 1 14:09:52 Chronic cough 43960077 Active 2022 Rangel Macdonald, DO [address] [place] [address], [address], [facility] 3 15:13:26 Dyspnea on exertion 59925368 Active 2022 Rangel Macdonald DO [address] [place] [address], [address], [facility] 3 23:00:00 Atrial fibrilla tion 84975906 Active 2022 Rangel Macdonald, DO [address] [place] [address], [address], [facility] 3 09:56:04 Aortic valve stenosis 67877961 Active 2022 Rangel Macdonald, DO [address] [place] [address], [address], [facility] 3 16:18:34 COVID-19 064965470 Active 2022 ALDEN VÁSQUEZ [address] [place] [address], [address], [facility] 3 09:30:55 Benign prostati c hyperpla saba 801174220 Active 2023 Rangel Macdonald DO [address] [place] [address], [address], [facility] 4 15:34:00 Contusio n of left knee 1859442660 2573838 Active 2023 Rangel Macdonald, DO [address] [place], [address], [facility] 4 13:57:10 Notes:[place]- possi ble exposed to agent orange Problem Notes None recorded. Procedures Surgical History Date Name Laterality Status Provider Name and Address Organization Details Recorded Time 0 Colonoscopy completed Kaelyn Howard [facility] 08/07/2018 14:16:54 Imaging Results Imaging Date Name Status LastModified by Organiz ation Details LastModified Time 10/23/2024 XR, chest, 2 view completed [facility] (Xrays Only) [address] [place], [address], 10/23/2024 14:54:47 Procedure Notes None recorded. Medical Equipment None [...] Not Available Not Available Not Avai lable cefadroxi l 500 mg capsule 03/07 completed [...] Available Not Available Not Avai lable OneTouch UltraSoft Lancets TEST twice a day [...] Not Available Not Available Not Avai lable Basaglar KwikPen U-100 Insulin 100 unit/mL (3 mL) subcutane ous ADMINIST ER 45 UNITS UNDER THE SKIN EVERY DAY 2024 active Not Available Not [...] INJECT 1MG UNDER THE SKIN EVERY WEEK 2024 active Not Available Not Available Not Thony Skelton COVID-19 Ag Self Test kit TEST DIRECTED [...] Updated DateTime 3 183.52 cm 26.4 kg/m2 39918.1 g 63 /min 98 % 98 % 120 mm[Hg] 68 mm[Hg] Rosey Marshall [facility] 3 13:53:13 Date Recorded Body height Body mass index (BMI) Body weight Heart rate Oxygen saturation Oxygen saturation in Arterial blood by Pulse oximetry Systolic blood pressure Diastolic blood pressure Provider Name and Address Organization Details Last Updated DateTime 4 183.52 cm 27.2 kg/m2 72336.7 4 g 70 /min 98 % 98 % 152 mm[Hg] 84 mm[Hg] Brittani Perez [facility] 4 13:56:01 Date Recorded Body height Body mass index (BMI) Body weight Heart rate Oxygen saturation Oxygen saturation in Arterial blood by Pulse oximetry Systolic blood pressure Diastolic blood pressure Provider Name and Address Organization Details Last Updated DateTime 4 182.88 cm 27.4 kg/m2 61420.6 6 g 62 /min 96 % 96 % 140 mm[Hg] 84 mm[Hg] Kd Mackey [facility] 4 13:31:49 Date Recorded Body height Body mass index (BMI) Body weight Heart rate Oxygen saturation Oxygen saturation in Arterial blood by Pulse oximetry Systolic blood pressure Diastolic blood pressure Provider Name and Address Organization Details Last Updated DateTime 5 182.88 cm 26.7 kg/m2 49200.9 8 g 64 /min 98 % 98 % 144 mm[Hg] 82 mm[Hg] Kd Mackey [facility] 5 13:44:34 Social History Question Answer Notes LastModified by Organizat ion Details LastModified Time Tobacco Smoking Status Former Smoker 1 ppd Kaelyn Howard [facility] 08/07/2018 13:50:58 What Was The Date [...] 30 mcg/0.3 mL dose 1 [facility] 08:31:01 COVID-19, mRNA, LNP-S, PF, 30 mcg/0.3 mL dose 2 completed Dawna Wang [facility] 02/08/2022 08:31:13 Influenza, split virus, quadrivalent, preservative 1 [facility]/08[facility]2022 08:31:31 Influenza, split virus, quadrivalent, preservative 8 completed Rangel Macdonald, DO [address] [facility], [place], [address], [facility] 07/08/2018 19:53:02 zoster live 8 completed Kaelyn ortiz [facility] 08/07/2018 13:50:26 zoster live [facility] 13:50:45 Influenza, split virus, quadrivalent, preservative 0 [facility] 05/19/2020 10:58:10 Tdap 7 completed Kaelyn ortiz [facility] 01/12/2021 09:54:45 COVID-19, mRNA, LNP-S, PF, 30 mcg/0.3 mL dose 1 completed Kaelyn ortiz [facility] 01/12/2021 09:55:04 COVID-19, mRNA, LNP-S, PF, 30 mcg/0.3 mL dose 1 completed Kaelyn ortiz [facility] 01/12/2021 09:55:08 Past Encounters Encounter ID Performer Location Encounter Start Date Encounter Closed Date Diagnosis/Indication Diagnosis SNOMED-CT Code Diagnosis ICD10 Code Diagnosis Note [id number] Rangel Macdonald [facility] [address] [facility] [address] 04/11/2018 15:28:28 04/11/2018 16:21:21 Hypertensive disorder 20166170 I10 here and is doing well w bp states Hypothyroidism 96471008 E03.9 need to have this eval next visit Type 2 checo betes mellitus 92916940 E11.9 doing well with 6.6 and will cont with 30 units of levemir [id number] Rangel Macdonald [facility] [address] [facility],[place] [address] 08/07/2018 13:40:30 08/07/2018 15:35:47 Hypertensive disorder 95907195 I10 here and is doing well w bp states Hypothyroidism 32269002 E03.9 need to have this eval next visit Type 2 checo betes mellitus 60421817 E11.9 doing well with 6.0 and will cont with 30 units of levemir Tobacco de pendence syndrome 61468915 F17.200 many warnings Abdominal aortic aneurysm screening 484086638 Z13.6 [id number] Rangel Macdonald [facility] [address] [facility],[place] [address] 12/04/2018 13:40:30 12/04/2018 14:50:14 Adult health examination 887100890 Z00.01 wish he would quit smoking Active or passive immunization 071556394 Z23 Tobacco de pendence syndrome 29107083 F17.200 many many warnings [id number] Rangel Macdonald [facility] [address] [facility] [address] 03/18/2019 11:11:10 03/18/2019 12:06:43 Type 2 diabetes mellitus 40831587 E11.9 doing well with 5.9 and will cont with 30 units of basaglar Hypothyroidism 09207361 E03.9 need to have this eval next visit Hypertensive disorder 38 800051 I10 here and is doing well w bp states [id number] Rangel Macdonald [facility] [address] [facility] [address] 07/02/2019 13:46:23 07/02/2019 14:40:50 Type 2 diabetes mellitus 70108554 E11.9 doing well with 5.9 and will cont with 30 units of basaglar Hypothyroidism 17691954 E03.9 need to have this eval next visit Hypertensive disorder 38 447471 I10 here and is doing well but given elevated K+ we will need to stop the lisinopril and rechk in a week or so pt will monitor his bp at home Hypercholesterolemia 136 52455 E78.00 stable Hyperkalemia 08451488 E8 7.5 will stop the lisinopril l no signs of RTA type 4 [id number] Rangel Macdonald [facility] [address] [facility] [address] 10/08/2019 13:16:33 10/08/2019 14:29:53 Hypercholesterolemia 62780718 E78.00 stable and cont to do her current med Hypertensive disorder 38 667174 I10 BP is stable Type 2 checo betes mellitus 59771040 E11.9 doing well with 6.5 and will cont with 30 units of basaglar [id number] [facility] [address] [facility] [place] [address] 02/05/2020 10:46:08 02/05/2020 12:02:11 Type 2 diabetes mellitus 73907649 E11.9 doing well qopymv3n 6.3 was 6.5 and will cont with 30 units of basaglar we lilly try to get him the ozempic and then get off the basaglar Hypertensive disorder 38 279583 I10 BP is stable Hypercholesterolemia 136 18920 E78.00 stable and cont to do her current med Hypothyroidism 48919553 E03.9 need to have this eval next visit Tobacco de pendence syndrome 42494441 F17.200 many many warnings AND HE HAS FINALLY STOPPED!!! !! as of sep this year [id number] Rangel Macdonald [facility] [address] [facility] [address] 05/19/2020 10:45:44 05/19/2020 14:21:52 Administration of influenza vaccine 36511443 Z23 [id number] Rangel Macdonald [facility] [address] [facility] [address] 05/25/2020 10:30:17 05/25/2020 11:54:52 Type 2 diabetes mellitus 95168196 E11.9 doing well with a1c was 6.0 6.3 was 6.5 and will decrease the insulin to 25 units of basaglar we lilly try to get him the ozempic and then get off the basaglar Hypothyroidism 44161758 E03.9 need to have this eval next visit Hypertensive disorder 38 607168 I10 BP is elevated but we had to lower the lisinopril due to elevated K+ will stop lisinopril and will use amlodipine 5 mg daily and rechk bmp in a couple weeks Hypercholesterolemia 136 11947 E78.00 stable and cont to do her current med LDL is 82 Hyperkalemia 76338896 E8 7.5 will stop the lisinopril no signs of RTA type 4 [id number] Rangel Macdonald [facility] [address] [facility] [address] 09/28/2020 08:42:39 09/28/2020 13:33:00 Hypertensive disorder 94775373 I10 BP is elevated but we had to lower the lisinopril due to elevated K+ will stop lisinopril and will use amlodipine 5 mg daily and rechk bmp in a couple weeks Type 2 checo betes mellitus 03282407 E11.9 doing well with a1c was 6.3 was 6.0 6.3 was 6.5 and will decrease the insulin to 25 units of basaglar we lilly try to get him the ozempic and then get off the basaglar Hypothyroidism 17199545 E03.9 need to have this eval next visit tsh will be ordered [id number] Rangel Macdonald [facility] [address] [facility],[place] [address] 01/13/2021 13:19:53 01/13/2021 14:43:35 Adult health examination 948921653 Z00.01 pt continues to do well and has been Screening for malignant neoplasm of colon 789105354 Z12.11 Type 2 checo betes mellitus 61976663 E11.9 doing well with a1c was 6.3 was 6.0 6.3 was 6.5 and will decrease the insulin to 25 units of basaglar [id number] [facility] [address] [facility],[place] [address] 05/25/2021 08:14:51 05/25/2021 15:09:07 Hypertensive disorder 14877765 I10 BP is elevated but we had to lower the lisinopril due to elevated K+ will stop lisinopril and will use amlodipine 5 mg daily and rechk bmp in a couple weeksand bp 130's /70's Hypercholesterolemia 136 23939 E78.00 stable and cont to do her current med LDL is 82 Type 2 checo betes mellitus 53170280 E11.9 doing well with a1c is 6.8 AND was 6.3 was 6.0 6.3 was 6.5 and will decrease the insulin to 25 units of basaglar Hypothyroidism 26507983 E03.9 need to have this eval next visit tsh will be ordered [id number] 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 we will have him get his sugars better [id number] Rangel Macdonald [facility] [address] [facility], [address] [facility] [place] [address] 02/14/2022 12:03:28 02/18/2022 08:08:03 Diabetic peripheral neuropathy 439949899 E11.40 Hypertensive disorder 38 127420 I10 BP is elevated but we had to lower the lisinopril due to elevated K+ will stop lisinopril and will use amlodipine 5 mg daily and rechk bmp in a couple weeksand bp 130's /70's Hypothyroidism 71902301 E03.9 need to have this eval next visit tsh will be ordered Type 2 checo betes mellitus 74213747 E11.9 doing well with a1c of 7.3 but was 6.8 AND was 6.3 was 6.0 6.3 was 6.5will need to rechk [id number] Rangel Macdonald [facility] [address] [facility], [address] [facility] [place] [address] 05/20/2022 13:17:37 05/20/2022 15:51:47 Type 2 diabetes mellitus 88035052 E11.9 doing well with a1c of 5.6 and doing great amazing and we will stop the metformina nd we will drop the basaglar to 35 uwill need to rechk Hypothyroidism 73456336 E03.9 tsh is <0.1 wwe need to decrease dose to levothy Hypertensive disorder 38 018379 I10 BP is elevated but we had to lower the lisinopril due to elevated K+ will stop lisinopril and will use amlodipine 5 mg daily and rechk bmp in a couple weeksand bp 130's /70's Diabetic p eripheral neuropathy 423687647 E11.40 [id number] Rangel Macdonald [facility] [address] [facility] [address] [address] [facility] [place] [address] 10/31/2022 14:00:19 10/31/2022 15:28:52 Active or passive immunization 934200619 Z23 Adult heal th examination 470647069 Z00.00 pt continues to do well and has been Diabetic p eripheral neuropathy 199277512 E11.40 seems stable right now Type 2 checo betes mellitus 55047444 E11.9 doing well with a1c of 5.6 and doing great amazing and we will stop the metformina nd we will drop the basaglar to 35 uwill need to rechk Hepatitis C screening 41 6713725 Z11.59 Advance care planning 71 3908092 Z71.89 utd Uncontroll ed type 2 diabetes mellitus 149992390 E11.65 Exposure t o Agent Gary 929989963 Z77.29 smoking history [id number] Rangel Macdonald [facility] [address] [facility],[place] [address] 03/07/2023 13:28:10 03/07/2023 14:47:27 Atrial fibrillation 69180281 I48.91 stable Hypertensive disorder 38 021853 I10 BP is elevated but we had to lower the lisinopril due to elevated K+ will stop lisinopril and will use amlodipine 5 mg daily and rechk bmp in a couple weeksand bp 130's /70's Hypothyroidism 02623319 E03.9 tsh is <0.1 wwe need to decrease dose to levothy Type 2 checo betes mellitus 23262392 E11.9 doing well with a1c of 5.6 and doing great amazing and we will stop the metformina nd we will drop the basaglar to 35 uwill need to rechk Advance care planning 71 5371047 Z71.89 utd Hepatitis C screening 41 2369502 Z11.59 [id number] Rangel Macdonald [facility] [address] [facility],[place] [address] 06/13/2023 13:38:31 06/13/2023 14:11:48 Aortic valve stenosis 78209735 I35.0 stable no issue Atrial fibrillation 4943 6004 I48.91 stable Hypercholesterolemia 136 94657 E78.00 stable and cont to do her current med LDL is 82 Hypertensive disorder 38 894111 I10 bp is excellent Type 2 checo betes mellitus 43392327 E11.9 doing well with a1c is 6.5 was as low of 5.6 (and we will drop the basaglar to 35 uwill need to rechk Hypothyroidism 01040270 E03.9 we willcont to follow and see how he does as lab is much better Diabetic p eripheral neuropathy 261109120 E11.40 seems stable right now [id number] Rangel Macdonald [facility] [address] [facility],[place] [address] 09/01/2023 08:41:29 09/01/2023 11:11:58 Hypercholesterolemia 01497996 E78.00 stable and cont to do her current med LDL is 82 Hypertensive disorder 38 352566 I10 bp is excellent Hypothyroidism 48075540 E03.9 we willcont to follow and see how he does as lab is much better Type 2 checo betes mellitus 35101228 E11.9 doing well with a1c is 6.5 was as low of 5.6 (and we will drop the basaglar to 35 uwill need to rechk Diabetic p eripheral neuropathy 591507095 E11.40 seems stable right now [id number] Rangel Macdonald [facility] [address] [facility],[place] [address] 12/19/2023 13:42:44 12/20/2023 09:07:55 Diabetic peripheral neuropathy 755060398 E11.40 seems stable right now Hypercholesterolemia 136 45976 E78.00 stable and cont to do her current med LDL is 82 Hypertensive disorder 38 570104 I10 bp is excellent Hypothyroidism 92390172 E03.9 we willcont to follow and see how he does as lab is much better Type 2 checo betes mellitus 64955604 E11.9 doing well with a1c is 6.3 was 6.5 was as low of 5.6 (and we will drop the basaglar to 35 uwill need to rechk Atrial fibrillation 4943 6004 I48.91 stable [id number] Rangel Macdonald [facility] [address] [facility],[place] [address] 06/28/2024 13:22:02 06/28/2024 14:13:42 Adult health examination 743035386 Z00.01 pt continues to do well and has been Screening for cardiovascular system disease 933975541 Z13.6 Depression screening 171 105673 Z13.31 neg Atrial fibrillation 4943 6004 I48.91 stable doing well Aortic valve stenosis 60 040086 I35.0 stable no issue Hypothyroidism 37639193 E03.9 we will cont to follow and see how he does as lab is much better Hypertensive disorder 38 464119 I10 bp is excellent at home and sl elevated here Contusion of left knee 1378269575 1468535 S80.02XA cont to manage conserv [id number] Rangel Macdonald, [facility] [address],[place] [address] 10/08/2024 13:32:25 10/08/2024 14:29:40 Atrial fibrillation 62213267 I48.91 stable doing well Hypercholesterolemia 136 69459 E78.00 stable and cont to do her current med LDL is 82 Hypertensive disorder 38 398892 I10 bp is excellent at home and sl elevated here Type 2 checo betes mellitus 59830235 E11.9 doing well with a1c is 6.3 was 6.3 was as low of 5.6 (and we will drop the basaglar to 35 uwill need to rechk Hypothyroidism 20316159 E03.9 we will cont to follow and see how he does as lab is much better Exposure t o Agent Gary 151072446 Z77.29 smoking history as well we will [...] 1 [place] [employer] Robert Carreon [id number] Robert Velma 06/13/2023 2 [facility] INDEMNITY PLAN - UNICARE [id number] Robert Velma [id number] Robert Velma 09/01/2023 1 [place] [employer] Robert Ceja Velma [id number] Robert Velma 09/01/2023 2 [facility] UNIC[facility] [id number] Robert Velma [id number] Robert Velma 12/19/2023 1 [place]: [facility] GOVERNMENT SERVICES Robert Carreon [id number] Robert Velma 12/19/2023 2 [facility] [id number] Robert Velma [id number] Robert Velma 06/28/2024 1 [place] [facility] SERVICES Robert Carreon [id number] Robert Velma 06/28/2024 2 [facility] [id number] Robert Velma [id number] Robert Velma 10/08/2024 1 [place]: [facility] SERVICES Robert Carreon [id number] Robert Velma 10/08/2024 2 [facility] [id number] Robert Velma [id number] Robert Velma Notes Date Note Type Note Provider Name and Address Organization Details Recorded Time 3 text/htm l had a episode of sudden onset of left leg numbnesswent to hosp and admitted for observation of Rick felt he had a pinched nerve poss peroneal by the knee\covid infection after did fine with paxlovidhad full work up had a ct and mri done which did not show cva a1c is 6.5 Rangel Macdonald, DO [address] [facility], [place], [address], [facility] 06/13/2023 14:10:40 4 text/htm l [...] enlarged and sorelegs are goodneuropathy is the [id number] 6.3 no cp no sob Rangel CarinaElizabeth Macdonald DO [address] [place] [address], [phone], [facility] 09/01/2023 10:52:32 4 text/htm l [...] and is doing wellno majors complaints Rangel Macdonald DO [address] [place] [address], [phone] Internal [facility] 12/19/2023 14:22:57 4 text/htm l [...] in the homeNotes:reviewed lab Rangel Macdonald DO [address] [place] [address], [phone], [facility] 06/28/2024 13:59:22 5 text/htm l here for r echk and is doing well [id number] is 6.3no cp o sob feels wellsleeping okappetite controlled Rangel Macdonald DO [address] [place] [address], [phone], [facility] 10/08/2024 14:12:16
[2025-01-01 14:16] LABS: Estimated Average Glucose 143 mg/dL; Hemoglobin A1C 186.4579 umol/L; Hemoglobin A1c % 6.6 % (<6.0); Total Hemoglobin (HGBA1C) 3830.6089 umol/L
== END 2025-01-01 09:59 | disposition home or self-care (01) ==
LOC: HO.MANLDS 09:58
PROVIDERS: Visit Provider Internal Medicine
DX: E11.9 Type 2 diabetes mellitus without complications (principal)
CPT/HCPCS: 36415; 83036

== ENCOUNTER 2025-04-15 09:36 | Outpatient (REF) | payer MEDICARE, OTHER, SELFPAY ==
--- OUTSIDE RECORDS SUMMARY | 2025-04-15 10:43 | XMS_ITS | Clinical Summary ---
Author Organization [facility] Address [address] [id number] Phone Care Team Providers Care Hot Room Attendant Name Role Phone Amauryyanni Rangel Carina OWENS Primary Care Provider [phone] Social History Tobacco Use Types Packs/Day Years [...] at Not on file Legal Sex Male 10:05 PM EDT Gender Identity Not on file [...] on file Medical Devices Not on file Insurance [employer] [facility] EXTENSION MEDICARE SUPPLEMENT MEDICARE PART A & B Member Subscriber Plan / Payer (Ef fective 2017-Present) Name:Robert Cao Member ID:[id number] Relation to Subscriber:Self Name:Robert Cao Subscriber ID:[id number] Payer ID:[id number] Group ID:Not on file Type:Medicare Address: [email or web address] [address] [place] [address] EXTENSION MEDICARE SUPPLEMENT MEDICARE PART A & B Member Subscriber Plan / Payer (Ef fective 2017-Present) Name:Velma Robert Member ID:[id number] Relation to Subscriber:Self Name:Robert Cao Subscriber ID:[id number] Payer ID:[id number] Group ID:Not on file Type:Medicare Address: [email or web address] [address] [place] [address] MEDICARE SUPPLEMENT MEDICARE PART A & B MEDICARE SUPPLEMENT MEDICARE PART A & B EXTENSION MEDICARE SUPPLEMENT MEDICARE PART A & [place] [address] [place] [address] EXTENSION MEDICARE SUPPLEMENT MEDICARE PART A & [place] [address] [place] [address] EXTENSION MEDICARE SUPPLEMENT MEDICARE PART A & B [employer] EXTENSION MEDICARE SUPPLEMENT MEDICARE PART A & B [employer] EXTENSION MEDICARE SUPPLEMENT MEDICARE PART A & B Care Teams Hot Room Attendant Relationship Specialty Start Date End Date Rangel Zepeda DO [email or web address] PCP - General Internal Medicine 09/22/20 Additional Source Comments The information contained in this document represents components of the legal health record. It is not the complete legal health record.[facility]
--- OUTSIDE RECORDS SUMMARY | 2025-04-15 10:43 | XMS_ITS | Clinical Summary ---
Author Organization [facility] Address [address] [place] [address] Care Team Providers Care Customer Experience Retail Clerk Name Role Phone Rangel Zepeda Primary Care Provider [phone] Allergies No known active allergies Medications Aspirin (ST VLADIMIR) 81 MG EC [...] 1 (one) time each day. 3 Active Basaglar KwikPen 100 UNIT/ML Pen-Injector ADMINISTER 45 UNITS UNDER THE SKIN EVERY DAY Active Jardiance 10 MG tablet Take 1 tablet by mouth 1 (one) time each day. Active Active Problems Problem Noted Date Diagnosed Date Contusion of left knee 06/28/2024 Benign prostatic hyperplasia 06/21/2024 COVID-19 04/20/2023 Aortic valve stenosis 03/08/2023 Atrial fibrillation 03/03/2023 Dyspnea on exertion 11/17/2022 Chronic cough 10/31/2022 Diabetic peripheral neuropathy 01/13/2021 Primary erectile dysfunction 01/13/2021 Hypercholesterolemia 04/11/2018 Hypertensive disorder 04/11/2018 Hypothyroidism 04/11/2018 Overview (01/08/2025): radioactive iodine induced 2/2 graves treatment Tobacco dependence syndrome 04/11/2018 Type 2 diabetes mellitus 04/11/2018 Immunizations Immunization Administration Dates Next Due COVID-19, mRNA (Pfizer Pre F all 2022) Monovalent, 30 mcg/0.3 ml 06/04/2021,11/19/2020,10/29/2020 Covid-19, [...] Sign Reading Time Taken Comments Blood Pressure 143/85 01/08/2025 9:02 AM EDT Pulse 85 01/08/2025 9:00 AM EDT Temperature 37.1 C (98.7 F) 01/08/2025 9:00 AM EDT Respiratory Rate 18 01/08/2025 9:00 AM EDT Oxygen Saturation 98% 01/08/2025 9:00 AM EDT Inhaled Oxygen Concentration - - Weight - - Height - - Body Mass Index - - Plan of Treatment Health Maintenance Due Date Last Done Comments Hepatitis C Screening 1950 Eye/Retina Exam 1966 GFR 1966 Microalbumin 1966 Pneumococcal 50+ years (1 of 2 - PCV) 1967 Colon Cancer Screening 1993 Zoster (Shingrix) (2 of 3) 05/08/2018 03/13/2018, LDL Cholesterol 09/22/2021 09/22/2020, 09/22/2020 RSV (1 - 1-dose 75+ series) 2023 HA1C 12/07/2023 06/07/2023, 09/22/2020 COVID-19 Vaccine ( season) 2024 07/09/2022, 11/26/2021, 06/04/2021, Additional history exists Influenza (#1) 2025 07/31/2023, 1001/2022, 06/11/2021, Additional history exists DTaP/Tdap/Td (2 - Td or Tdap) 11/02/2026 11/02/2016 Zoster (Zostavax) Discontinued 03/13/2018, 11/22/2017 Chest Imaging Discontinued 10/23/2024, 10/23/2024 HPV Vaccine (No Doses Required) Completed Hep A Aged Out No longer eligi [...] complete this topic Insurance MEDICARE PART B [employer] EXTENSION SUPPLEMENTAL Care Teams Customer Experience Retail Clerk Relationship Specialty Start Date End Date Rangel Zepeda [facility] [address] [place] [phone] PCP - General Internal Medicine 01/29/23
--- OUTSIDE RECORDS SUMMARY | 2025-04-15 10:43 | XMS_ITS | Clinical Summary ---
Author Organization [facility] Address [address] [place] [address] Care Team Providers Care Rehab Technician Name Role Phone Rangel Zepeda Primary Care Provider [phone] Allergies No known active allergies Social History [...] Follow-Up 08/28/2024 Health Care Proxy Review 08/28/2024 Social Drivers of Health Annual Screening 08/28/2024 Influenza Vaccine (#1) 2025 3, 06/02/2022, 06/11/2021, Additional history exists DTaP,Tdap,and Td Vaccines (2 - Td or Tdap) 11/02/2026 11/02/2016 Hepatitis B Vaccines Aged Out No long er eligible based on patient's age to complete this topic Insurance MEDICARE [facility] Care Teams Rehab Technician Relationship Specialty Start Date End Date Rangel Zepeda [address] [place] [address] PCP - General Internal Medicine 01/27/21
[2025-04-15 13:43] LABS: Alanine Aminotransferase 19 U/L (0-40); Albumin Level 4.3 g/dL (3.5-5.0); Alkaline Phosphatase 83 U/L (39-117); Anion Gap 14 (12-20); Aspartate Amino Transferase 40 U/L (5-37); Blood Urea Nitrogen 13 mg/dL (9-16); Calcium 9.5 mg/dL (8.4-10.2); Carbon Dioxide 25 mmol/L (22-29); Chloride 106 mmol/L (96-108); Cholesterol 164 mg/dL (<200); Estimated Glomerular Filt Rate > 60; HDL Cholesterol 49 mg/dL (>40); Potassium 4.7 mmol/L (3.3-5.1); Sodium 140 mmol/L (135-145); Total Protein 7.0 g/dL (6.5-8.0); Triglycerides 121 mg/dL (<150)
[2025-04-15 13:45] LABS: Prostate Specific Antigen 1.02 ng/mL (<0.05-4.0)
[2025-04-15 13:47] LABS: Hemoglobin A1C 202.7295 umol/L; Total Hemoglobin (HGBA1C) 3992.2642 umol/L
[2025-04-15 13:58] LABS: Thyroid Stimulating Hormone 0.97 uIU/mL (0.32-4.0)
== END 2025-04-15 09:37 | disposition home or self-care (01) ==
LOC: HO.MANLDS 09:36
PROVIDERS: Visit Provider Internal Medicine
DX: Z12.5 Encounter for screening for malignant neoplasm of prostate (principal); E11.9 Type 2 diabetes mellitus without complications; E03.9 Hypothyroidism, unspecified; E78.00 Pure hypercholesterolemia, unspecified; N40.1 Benign prostatic hyperplasia with lower urinary tract symptoms
CPT/HCPCS: 36415; 80053; 80061; 83036; 84153; 84443

== ENCOUNTER 2025-07-07 08:45 | Outpatient (REF) | payer MEDICARE, OTHER, SELFPAY ==
--- OUTSIDE RECORDS SUMMARY | 2025-07-07 09:09 | XMS_ITS | Clinical Summary ---
Author Organization [facility] Address [address] [id number] Phone Care Team Providers Care Deputy Program Manager Name Role Phone Amauryyanni Rangel Carina OWENS Primary Care Provider [phone] Social History Tobacco Use Types Packs/Day Years [...] file Medical Devices Not on file Insurance [employer] [facility] EXTENSION MEDICARE SUPPLEMENT MEDICARE PART A & B [employer] MEDICARE SUPPLEMENT MEDICARE PART A & B MEDICARE SUPPLEMENT MEDICARE PART A & B MEDICARE SUPPLEMENT MEDICARE PART A & B EXT[employer]ION MEDICARE SUPPLEMENT MEDICARE PART A & [place] [address] [place] [address] EXTENSION MEDICARE SUPPLEMENT MEDICARE PART A & [place] [address] [place] [address] EXTENSION MEDICARE SUPPLEMENT MEDICARE PART A & B [employer] EXTENSION MEDICARE SUPPLEMENT MEDICARE PART A & B [employer] EXTENSION MEDICARE SUPPLEMENT MEDICARE PART A & B Care Teams Deputy Program Manager Relationship Specialty Start Date End Date Rangel Zepeda DO [email or web address] PCP - General Internal Medicine 09/22/20 Additional Source Comments The information contained in this document represents components of the legal health record. It is not the complete legal health record.[facility]
--- OUTSIDE RECORDS SUMMARY | 2025-07-07 09:09 | XMS_ITS | Clinical Summary ---
Author Organization [facility] Address [address] [place] [address] Care Team Providers Care Pr Specialist Name Role Phone Rangel Zepeda Primary Care Provider [phone] Allergies No known active allergies Social History [...] 03/05/2010 1:56 PM EDT Plan of Treatment Upcoming Encounters Date Type Department Care Team (Late st Contact Info) Description 07/18/2025 8:15 AM EST Appointment [facility] [address] [place] [address] Health Maintenance Due Date Last Done Comments Hepatitis C Screening 1950 Medicare AWV 1951 Pneumococcal Vaccine: 50+ Years (1 of 1 - PCV) 1998 Zoster Vaccines (2 of 3) 05/08/2018 03/13/2018, 10/27 RSV Vaccine (60+ years old and patients) (1 - 1-dose 75+ series) 2023 Alcohol/Substance Use Screening 08/28/2024 Depression Screening and Follow-Up 08/28/2024 Health Care Proxy Review 08/28/2024 Social Drivers of Health Annual Screening 08/28/2024 COVID-19 Vaccine ( season) 2025 07/09/2022, 11/26/2021, 06/04/2021, Additional history exists Influenza Vaccine (#1) 2025 , 06/02/2022, 06/11/2021, Additional history exists DTaP,Tdap,and Td Vaccines (2 - Td or Tdap) 11/02/2026 11/02/2016 Hepatitis B Vaccines Aged Out No long er eligible based on patient's age to complete this topic Insurance MEDICARE [facility] Care Teams Pr Specialist Relationship Specialty Start Date End Date Rangel Zepeda [address] [place] [phone] PCP - General Internal Medicine 01/27/21
--- OUTSIDE RECORDS SUMMARY | 2025-07-07 09:09 | XMS_ITS | Clinical Summary ---
Author Organization [facility] Address [address] [place] [address] Care Team Providers Care Switch Maker Name Role Phone Rangel Zepeda Primary Care Provider [phone] Allergies No known active allergies Medications Aspirin [...] 12/07/2023 06/07/2023, 09/22/2020 COVID-19 Vaccine ( season) 2025 07/09/2022, 11/26/2021, [...] B [employer] EXTENSION SUPPLEMENTAL Care Teams Switch Maker Relationship Specialty Start Date End Date Rangel Zepeda [facility] [address] [place] [address] PCP - General Internal Medicine 01/29/23
--- OUTSIDE RECORDS SUMMARY | 2025-07-07 09:09 | XMS_ITS | Data Portability ---
[facility] Organization [facility] Patient Home Address [address] [place] [address] Assessment Encounter Date Assessment Date Assessment LastModified by Organization Details LastModified Time 12/19/2023 12/19/2023 [id number] [place] [id number] ([place]) MDM MODERATE MUST MEET 2 OUT OF [...] living. Not available 03/27/2024 14:05:15 10/08/2024 10/08/2024 [id number] [place] [address] ([place]) MDM HIGH MUST MEET 2 OUT OF [...] an established patient. Not available 10/08/2024 14:06:14 01/07/2025 01/07/2025 [id number] [place] [address] ([place]) [facility] MODERATE MUST MEET 2 OUT OF 3 [...] EACH ELEMENT THAT IS COVERED Not available 01/07/2025 14:44:49 04/22/2025 04/22/2025 [id number] [place] [address] ([place]) [facility] MODERATE MUST MEET 2 OUT OF 3 [...] EACH ELEMENT THAT IS COVERED Not available 04/22/2025 13:45:32 Plan of Treatment Reminders Order Date Submit Date Provider Last Modified By Organization Details Last Modified Time Details Appointments MEDICARE ANNUAL WELLNESS 2024 02:15P M DR MACDONALD Not available Not available Not available FOLLOW UP 15 2025 01:45P M DR MACDONALD Not available Not available Not available Lab protein electroph oresis panel, serum or plasma 2024 025 [facility], [address] [place] [address], [id number], 10/08/2024 14:12:21 afp (alpha-fe toprotein ), serum 2024 025 [facility], [address] [place] [address], [id number], 10/11/2024 12:19:13 PSA, serum or plasma 2024 025 [facility], [address] [place] [address], [id number], 10/09/2024 12:28:40 lipid panel, blood 2023 024 [facility], [address] [place] [address], [address], 06/28/2024 13:59:25 CBC w/ auto diff 2023 024 [facility], [address] [place] [address], [address], 06/28/2024 13:59:25 CMP, serum or plasma 2023 024 [facility], [address] [place] [address], [address], 06/28/2024 13:59:25 Referral None recorded. Procedures None recorded. Surgeries None recorded. Imaging bone density 2024 025 [facility]iology Dept, [address] [place] [address] [place], [address], 05/06/2025 08:27:59 XR, chest, 2 view [email or web address] [facility], [address] [place], [address], 10/08/2024 14:29:40 XR, knee, 3 view 2023 024 [facility] [address] [place] [address], [id number], 07/12/2024 08:23:31 Medication Orders None recorded. Patient TargetsNo targets recorded. Patient Instructions Encounter Date Encounter Id Patient Instructions Last Modified By Organization Details Last Modified Time 12/19/2023 [id number] atrial fibrillation: care instructions Not available 12/19/2023 14:21:27 06/28/2024 [id number] atrial fibrillation: care instructions Not available 06/28/2024 13:58:03 hypothyroidism: care instructions Not available 06/28/2024 13:58:03 aortic valve stenosis: care instructions Not available 06/28/2024 13:58:03 Discussed and explained advance directives such as standard forms to the . Face to face discussion lasted for a duration of ___ minutes. Not available 03/27/2024 14:05:15 04/22/2025 [id number] pulse oximetry* Not available 04/22/2025 13:46:05 Reason for Referral None Reported. Results Created Date Observation Date Name Description Value Unit Range Abnormal Flag Note LastModifiedBy Organization Detail LastModifiedTime 04/22/2004/22/2025 pulse oxime try* Result 96 Not Available [facility] [address] [facility] [address], [place], [address], 04/11/2025 10:36:50 10/23/19 25 10/23/2024 XR, chest , 2 view No observ ation record ed. [facility] (Xrays Only) [address] [place], [address], 10/23/2024 14:54:47 Result Notes None recorded. Problems Name Problem SNOMED Code Status Onset Date Resolution Date Notes Provider Name and Address Organization Details Recorded Time Hyperten sive disorder 47739738 [facility] 8 08:44:07 Type 2 diabetes mellitus 60773418 Active 2017 [facility] 8 08:44:11 Hypercho lesterol emia 12911907 Active 2017 [facility] 8 08:44:16 Tobacco dependen ce syndrome 22057021 Completed 201702/05/2020 Rangel Macodnald DO [address] [place] [address], [address], [facility] 0 11:49:06 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 [facility] 8 08:44:43 Diabetic peripher al neuropat hy 001726908 Active 2020 Rangel Macdonald DO [address] [place] [address], [address], [facility] 1 13:53:46 Primary erectile dysfunct ion 138437357 Active 2020 Rangel Macdonald, [address] [place] [address], [address], [facility] 1 14:09:52 Chronic cough 42520423 Active 2022 Rangel Macdonald DO [address] [place] [address], [address], [facility] 3 15:13:26 Dyspnea on exertion 35602256 Active 2022 Rangel Macdonald DO [address] [place] [address], [address], [facility] 3 23:00:00 Atrial fibrilla tion 91229495 Active 2022 Rangel CarinaElizabeth Macdonald [address], [address], [facility] 3 09:56:04 Aortic valve stenosis 47791447 Active 2022 Rangel Macdonald [address], [address], [facility] 3 16:18:34 COVID-19 180890747 Active 2022 ALDEN VÁSQUEZ [address] [place] [address], [address], [facility] 3 09:30:55 Benign prostati c hyperpla saba 625290735 Active 2023 Rangel Macdonald DO [address] [place] [address], [address], [facility] 4 15:34:00 Contusio n of left knee 4102386698 8569935 Active 2023 Rangel Macdonald [address], [address], [facility] 4 13:57:10 Acute urinary tract infectio n 562141275 Active 2024 Rangel Macdonald DO [address] [place] [address], [address], [facility] 5 14:18:11 Osteopen ia 338899455 Active 2024 Rangel Macdonald [address], [address], [facility] 5 13:46:44 Notes:[place]- possi ble exposed to agent orange Problem Notes None recorded. Procedures Surgical History Date Name Laterality Status Provider Name and Address Organization Details Recorded Time 0 Colonoscopy completed Kaelyn Howard [facility] 08/07/2018 14:16:54 Imaging Results None [...] Not Available Not Available No t Available sulfameth oxazole 800 mg-trimet hoprim 160 mg tablet TAKE 1 TABLET BY MOUTH EVERY 12 HOURS FOR 10 DAYS 04/22 completed Not Available Not Available Not Available cefadroxi l 500 mg capsule 03/07 [...] Not Available Not Available Not Avai lable amoxicill in 875 mg-potass ium clavulana te 125 mg tablet TAKE 1 TABLET BY MOUTH TWICE DAILY FOR 5 DAYS 04/22 completed Not Available Not Available Not Available OneTouch UltraSoft Lancets TEST twice a [...] Not Available Not Available Not Available OneTouch Delica Plus Lancet 33 gauge [...] completed Not Available Not Available Not Available Kimmie 2nd Gen Pen Needle 32 gauge x 5/32 USE TO INJECT ONCE DAILY DIRECTED active Not Available Not Available No t Available Vitals Date Recorded Body height Body mass index (BMI) Body weight Heart rate Oxygen saturation Oxygen saturation in Arterial blood by Pulse oximetry Systolic And Diastolic Provider Name and Address Organization Details Last Updated DateTime 5 182.88 cm 26.7 kg/m2 42084.9 8 g 64 /min 98 % 98 % 144/82 mm[Hg] Kd Mackey [facility] 5 13:44:34 Date Recorded Body height Body mass index (BMI) Body weight Heart rate Oxygen saturation Oxygen saturation in Arterial blood by Pulse oximetry Systolic And Diastolic Provider Name and Address Organization Details Last Updated DateTime 4 183.52 cm 27.2 kg/m2 35979.7 4 g 70 /min 98 % 98 % 152/84 mm[Hg] Brittani Perez [facility] 4 13:56:01 Date Recorded Body height Heart rate Oxygen saturation Oxygen saturation in Arterial blood by Pulse oximetry Systolic And Diastolic Provider Name and Address Organization Details Last Updated DateTime 5 182.88 cm 61 /min 97 % 97 % 150/80 mm[Hg] Fabi Valente [facility] 5 14:12:47 Date Recorded Body height Body mass index (BMI) Body weight Oxygen saturation Oxygen saturation in Arterial blood by Pulse oximetry Heart rate Systolic And Diastolic Provider Name and Address Organization Details Last Updated DateTime 5 182.88 cm 28 kg/m2 38260.7 5 g 96 % 96 % 82 /min 126/70 mm[Hg] Carrie Connelly [facility] 5 13:34:36 Date Recorded Body height Body mass index (BMI) Body weight Heart rate Oxygen saturation Oxygen saturation in Arterial blood by Pulse oximetry Systolic And Diastolic Provider Name and Address Organization Details Last Updated DateTime 4 182.88 cm 27.4 kg/m2 08102.6 6 g 62 /min 96 % 96 % 140/84 mm[Hg] Kd Mackey [facility] 4 13:31:49 Social History Question Answer Notes LastModified by Organizat ion Details LastModified Time Tobacco Smoking Status Former Smoker 1 ppd [facility]07/2018 13:50:58 What Was The Date Of Your Most Recent Tobacco Screening? 04/22/2025 [email or web address] Information not available 04/22/2025 Sex: Unknown Functional Status Question Answer Note LastModified by Organization D etails LastModified Time Do you or have you ever used any other forms of tobacco or nicotine? No Information not available 10/31/2022 Mental Status None recorded. Family History Nothing Reported. Medical History No medical history recorded. Immunizations Vaccine Type Date Status Note Provider Nam e and Address Organization Details Recorded Time COVID-19, mRNA, LNP-S, PF, 30 mcg/0.3 mL dose 1 completed [facility] 02/08/2022 08:31:01 COVID-19, mRNA, LNP-S, PF, 30 mcg/0.3 mL dose 2 completed [facility] 02/08/2022 08:31:13 Influenza, split virus, quadrivalent, preservative 1 completed [facility] 02/08/2022 08:31:31 Influenza, split virus, quadrivalent, preservative 8 completed Rangel Macdonald, DO [address] [place] [address], [place], [address] 07/08/2018 19:53:02 zoster live 8 completed [facility] 08/07/2018 13:50:26 zoster live 8 completed [facility] 08/07/2018 13:50:45 Influenza, split virus, quadrivalent, preservative 0 completed [facility] 05/19/2020 10:58:10 Tdap 7 completed [facility] 01/12/2021 09:54:45 COVID-19, mRNA, LNP-S, PF, 30 mcg/0.3 mL dose 1 completed Kaelyn ortiz [facility] 01/12/2021 09:55:04 COVID-19, mRNA, LNP-S, PF, 30 mcg/0.3 mL dose 1 completed Kaelyn ortiz [facility] 01/12/2021 09:55:08 Past Encounters Encounter ID Performer Location Encounter Start Date Encounter Closed Date Diagnosis/Indication Diagnosis SNOMED-CT Code Diagnosis ICD10 Code Diagnosis IMO Codes Diagnosis Note [id number] Rangel Macdonald [facility] [address] [facility] [address] 04/11/2018 15:28:28 04/11/2018 16:21:21 Hypertensive disorder 83490417 I10 here and is doing well w bp states Hypothyroidism 27189643 E03.9 need to have this eval next visit Type 2 checo betes mellitus 44318949 E11.9 doing well with 6.6 and will cont with 30 units of levemir [id number] Rangel Macdonald [facility] [address] [facility],[place] [address] 08/07/2018 13:40:30 08/07/2018 15:35:47 Hypertensive disorder 64652405 I10 here and is doing well w bp states Hypothyroidism 25940557 E03.9 need to have this eval next visit Type 2 checo betes mellitus 29830619 E11.9 doing well with 6.0 and will cont with 30 units of levemir Tobacco de pendence syndrome 33340165 F17.200 many warnings Abdominal aortic aneurysm screening 545457771 Z13.6 [id number] Rangel Macdonald [facility] [address] [facility],[place] [address] 12/04/2018 13:40:30 12/04/2018 14:50:14 Adult health examination 047127187 Z00.01 wish he would quit smoking Active or passive immunization 026136012 Z23 Tobacco de pendence syndrome 26757304 F17.200 many many warnings [id number] Rnagel Macdonald [facility] [address] [facility],[place] [address] 03/18/2019 11:11:10 03/18/2019 12:06:43 Type 2 diabetes mellitus 06356748 E11.9 doing well with 5.9 and will cont with 30 units of basaglar Hypothyroidism 18406786 E03.9 need to have this eval next visit Hypertensive disorder 38 383106 I10 here and is doing well w bp states [id number] Rangel Macdonald [facility] [address] [facility] [address],[place] [address] 07/02/2019 13:46:23 07/02/2019 14:40:50 Type 2 diabetes mellitus 94056578 E11.9 doing well with 5.9 and will cont with 30 units of basaglar Hypothyroidism 08848047 E03.9 need to have this eval next visit Hypertensive disorder 38 485350 I10 here and is doing well but given elevated K+ we will need to stop the lisinopril and rechk in a week or so pt will monitor his bp at home Hypercholesterolemia 136 24373 E78.00 stable Hyperkalemia 53684399 E8 7.5 will stop the lisinopril l no signs of RTA type 4 [id number] Rangel Macdonald [facility] [address] [facility] [address],[place] [address] 10/08/2019 13:16:33 10/08/2019 14:29:53 Hypercholesterolemia 76269995 E78.00 stable and cont to do her current med Hypertensive disorder 38 737136 I10 BP is stable Type 2 checo betes mellitus 11116205 E11.9 doing well with 6.5 and will cont with 30 units of basaglar [id number] Rangel Macdonald [facility] [address] [facility] [address],[place] [address] 02/05/2020 10:46:08 02/05/2020 12:02:11 Type 2 diabetes mellitus 27096280 E11.9 doing well [id number] 6.3 was 6.5 and will cont with 30 units of basaglar we lilly try to get him the ozempic and then get off the basaglar Hypertensive disorder 38 703821 I10 BP is stable Hypercholesterolemia 136 65251 E78.00 stable and cont to do her current med Hypothyroidism 01290197 E03.9 need to have this eval next visit Tobacco de pendence syndrome 35276141 F17.200 many many warnings AND HE HAS FINALLY STOPPED!!! !! as of sep this year [id number] Rangel LimElizabeth Macdonald [facility] [address] [facility],[place] [address] 05/19/2020 10:45:44 05/19/2020 14:21:52 Administration of influenza vaccine 00343648 Z23 [id number] Rangel LimElizabeth Macdonald [facility] [address] [facility],[place] [address] 05/25/2020 10:30:17 05/25/2020 11:54:52 Type 2 diabetes mellitus 88256234 E11.9 doing well with a1c was 6.0 6.3 was 6.5 and will decrease the insulin to 25 units of basaglar we lilly try to get him the ozempic and then get off the basaglar Hypothyroidism 94768413 E03.9 need to have this eval next visit Hypertensive disorder 38 506488 I10 BP is elevated but we had to lower the lisinopril due to elevated K+ will stop lisinopril and will use amlodipine 5 mg daily and rechk bmp in a couple weeks Hypercholesterolemia 136 10749 E78.00 stable and cont to do her current med LDL is 82 Hyperkalemia 11390565 E8 7.5 will stop the lisinopril no signs of RTA type 4 [id number] Rangel Macdonald [facility] [address] [facility],[place] [address] 09/28/2020 08:42:39 09/28/2020 13:33:00 Hypertensive disorder 88647312 I10 BP is elevated but we had to lower the lisinopril due to elevated K+ will stop lisinopril and will use amlodipine 5 mg daily and rechk bmp in a couple weeks Type 2 checo betes mellitus 85127804 E11.9 doing well with a1c was 6.3 was 6.0 6.3 was 6.5 and will decrease the insulin to 25 units of basaglar we lilly try to get him the ozempic and then get off the basaglar Hypothyroidism 38060361 E03.9 need to have this eval next visit tsh will be ordered [id number] Rangel Macdonald [facility] [address] [facility],[place] [address] [facility] [place] [address] 01/13/2021 13:19:53 01/13/2021 14:43:35 Adult health examination 412039069 Z00.01 pt continues to do well and has been Screening for malignant neoplasm of colon 609332343 Z12.11 Type 2 checo betes mellitus 80925425 E11.9 doing well with a1c was 6.3 was 6.0 6.3 was 6.5 and will decrease the insulin to 25 units of basaglar [id number] Rangel Macdonald [facility] [address] [facility],[place] [facility] [place] [address] 05/25/2021 08:14:51 05/25/2021 15:09:07 Hypertensive disorder 17659068 I10 BP is elevated but we had to lower the lisinopril due to elevated K+ will stop lisinopril and will use amlodipine 5 mg daily and rechk bmp in a couple weeksand bp 130's /70's Hypercholesterolemia 136 71565 E78.00 stable and cont to do her current med LDL is 82 Type 2 checo betes mellitus 01841176 E11.9 doing well with a1c is 6.8 AND was 6.3 was 6.0 6.3 was 6.5 and will decrease the insulin to 25 units of basaglar Hypothyroidism 47600892 E03.9 need to have this eval next visit tsh will be ordered [id number] Rangel Macdonald [facility] [address] [facility],[place] [address] 10/22/2021 07:57:18 10/25/2021 14:00:09 Hypertensive disorder 01897067 I10 BP is elevated but we had to lower the lisinopril due to elevated K+ will stop lisinopril and will use amlodipine 5 mg daily and rechk bmp in a couple weeksand bp 130's /70's Type 2 checo betes mellitus 10589169 E11.9 doing well with a1c of 7.3 but was 6.8 AND was 6.3 was 6.0 6.3 was 6.5will need to rechk 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 we will have him get his sugars better [id number] Rangel Macdonald DO [facility] [address] [facility], [place] [address] 02/14/2022 12:03:28 02/18/2022 08:08:03 Diabetic peripheral neuropathy 841998846 E11.40 Hypertensive disorder 38 417886 I10 BP is elevated but we had to lower the lisinopril due to elevated K+ will stop lisinopril and will use amlodipine 5 mg daily and rechk bmp in a couple weeksand bp 130's /70's Hypothyroidism 16732857 E03.9 need to have this eval next visit tsh will be ordered Type 2 checo betes mellitus 01927594 E11.9 doing well with a1c of 7.3 but was 6.8 AND was 6.3 was 6.0 6.3 was 6.5will need to rechk [id number] Rangel Macdonald DO [facility] [address] [facility], shel[place] [facility] [place] [address] 05/20/2022 13:17:37 05/20/2022 15:51:47 Type 2 diabetes mellitus 81297404 E11.9 doing well with a1c of 5.6 and doing great amazing and we will stop the metformina nd we will drop the basaglar to 35 uwill need to rechk Hypothyroidism 87534042 E03.9 tsh is <0.1 wwe need to decrease dose to levothy Hypertensive disorder 38 273342 I10 BP is elevated but we had to lower the lisinopril due to elevated K+ will stop lisinopril and will use amlodipine 5 mg daily and rechk bmp in a couple weeksand bp 130's /70's Diabetic p eripheral neuropathy 056271449 E11.40 [id number] Rangel Macdonald DO [facility] [address] [facility],[place] [address] 10/31/2022 14:00:19 10/31/2022 15:28:52 Active or passive immunization 136548566 Z23 Adult heal th examination 269968091 Z00.00 pt continues to do well and has been Diabetic p eripheral neuropathy 618894999 E11.40 seems stable right now Type 2 checo betes mellitus 94050460 E11.9 doing well with a1c of 5.6 and doing great amazing and we will stop the metformina nd we will drop the basaglar to 35 uwill need to rechk Hepatitis C screening 41 0990879 Z11.59 Advance care planning 71 2782669 Z71.89 utd Uncontroll ed type 2 diabetes mellitus 402311230 E11.65 Exposure t o Agent Surprise 976504839 Z77.29 smoking history [id number] Rangel Macdonald [facility] [address] [facility],[place] [address] 03/07/2023 13:28:10 03/07/2023 14:47:27 Atrial fibrillation 02238834 I48.91 stable Hypertensive disorder 38 282579 I10 BP is elevated but we had to lower the lisinopril due to elevated K+ will stop lisinopril and will use amlodipine 5 mg daily and rechk bmp in a couple weeksand bp 130's /70's Hypothyroidism 01729355 E03.9 tsh is <0.1 wwe need to decrease dose to levothy Type 2 checo betes mellitus 94813587 E11.9 doing well with a1c of 5.6 and doing great amazing and we will stop the metformina nd we will drop the basaglar to 35 uwill need to rechk Advance care planning 71 5478317 Z71.89 utd Hepatitis C screening 41 4714589 Z11.59 [id number] Rangel Macdonald [facility] [address] [facility],[place] [address] 06/13/2023 13:38:31 06/13/2023 14:11:48 Aortic valve stenosis 46519819 I35.0 stable no issue Atrial fibrillation 4943 6004 I48.91 stable Hypercholesterolemia 136 31743 E78.00 stable and cont to do her current med LDL is 82 Hypertensive disorder 38 879190 I10 bp is excellent Type 2 checo betes mellitus 34206005 E11.9 doing well with a1c is 6.5 was as low of 5.6 (and we will drop the basaglar to 35 uwill need to rechk Hypothyroidism 35496018 E03.9 we willcont to follow and see how he does as lab is much better Diabetic p eripheral neuropathy 249273094 E11.40 seems stable right now [id number] Rangel Macdonald [facility] [address] [facility],[place] [address] 09/01/2023 08:41:29 09/01/2023 11:11:58 Hypercholesterolemia 46198715 E78.00 stable and cont to do her current med LDL is 82 Hypertensive disorder 38 996133 I10 bp is excellent Hypothyroidism 27493931 E03.9 we willcont to follow and see how he does as lab is much better Type 2 checo betes mellitus 64265318 E11.9 doing well with a1c is 6.5 was as low of 5.6 (and we will drop the basaglar to 35 uwill need to rechk Diabetic p eripheral neuropathy 078450901 E11.40 seems stable right now [id number] Rangel Dominguez Katelyn [facility] [address] [facility],[place] [facility] [address] 12/19/2023 13:42:44 12/20/2023 09:07:55 Diabetic peripheral neuropathy 615624500 E11.40 seems stable right now Hypercholesterolemia 136 02430 E78.00 stable and cont to do her current med LDL is 82 Hypertensive disorder 38 118168 I10 bp is excellent Hypothyroidism 39004894 E03.9 we willcont to follow and see how he does as lab is much better Type 2 checo betes mellitus 06903516 E11.9 doing well with a1c is 6.3 was 6.5 was as low of 5.6 (and we will drop the basaglar to 35 uwill need to rechk Atrial fibrillation 4943 6004 I48.91 stable [id number] Rangel Rebolledoyanni [facility] [address] [facility],[place] [address] 06/28/2024 13:22:02 06/28/2024 14:13:42 Adult health examination [id number] Z00.01 pt continues to do well and has been Screening for cardiovascular system disease [id number] Z13.6 Depression screening 171 238247 Z13.31 neg Atrial fibrillation 4943 6004 I48.91 stable doing well Aortic valve stenosis 60 552964 I35.0 stable no issue Hypothyroidism 40625278 E03.9 we will cont to follow and see how he does as lab is much better Hypertensive disorder 38 205895 I10 bp is excellent at home and sl elevated here Contusion of left knee [id number] 6139179 S80.02XA cont to manage conserv [id number] Rangel Rebolledoyanni [facility] [address] [facility] [address],[place] [address] [employer] [facility] [place] [address] 10/08/2024 13:32:25 10/08/2024 14:29:40 Atrial fibrillation [id number] I48.91 stable doing well Hypercholesterolemia 136 83643 E78.00 stable and cont to do her current med LDL is 82 Hypertensive disorder 38 948309 I10 bp is excellent at home and sl elevated here Type 2 checo betes mellitus 34002869 E11.9 doing well with a1c is 6.3 was 6.3 was as low of 5.6 (and we will drop the basaglar to 35 uwill need to rechk Hypothyroidism 82907483 E03.9 we will cont to follow and see how he does as lab is much better Exposure t o [employer] [place] [id number] Z77.29 smoking history as well we will get a cxr [id number] Rangel Dominguez Katelyn [facility] [address] [facility],[place] [employer] [facility] [address] 01/07/2025 13:47:48 01/07/2025 15:39:45 Hypercholesterolemia 87657739 E78.00 stable and cont to do her current med LDL is 82 Hypertensive disorder 38 026295 I10 bp is excellent at home and sl elevated here Type 2 checo betes mellitus 94671898 E11.9 doing well with a1c is 6.6 6.3 was 6.3 was as low of 5.6 (and we will drop the basaglar to 35 uwill need to rechk Depression screening 171 859138 Z13.31 neg [id number] Rangel LimElizabeth Macdonald [facility] [address] [facility] [address] [address] [address] 04/22/2025 13:22:47 04/22/2025 13:54:13 Depression screening [id number] Z13.31 neg Atrial fibrillation 4943 6004 I48.91 stable doing well Hypertensive disorder 38 211585 I10 bp is excellent at home and sl elevated here Type 2 checo betes mellitus 84696505 E11.9 doing well with a1c is 6.6 6.3 was 6.3 was as low of 5.6 (and we will drop the basaglar to 35 uwill need to rechk Osteopenia 897219426 M85 .88 [id number] will get dexa Health Concerns Section Related Observation LastModified by Organization Detai ls LastModified Time None Recorded Concern Status LastModified by Organization Details LastModified Time None Recorded Advance Directives Directive None Recorded Payers Insurance Date Sequence Insurance Name Policy Number Policy Castro Covered Member ID Castro Member ID Guarantor Name 07/03/2025 1 MEDICARE B-ID: [employer] Robert Carreon [id number] Robert Velma 04/19/2025 2 [facility] INDEMNITY PLAN (INDEMNITY) [id number] Robert Velma [id number] Robert Carreon Notes Date Note Type Note Provider Name and Address Organization Details Recorded Time 024 text/ht ml Care Management - DiabetesReported by PatientHPIFor self care, patient reportsseeing eye doctor yearly for dilated eye exam,checking feet regularly,normal range of home blood sugars (in the low 100s), andno side effects from medications. For associated symptoms, patient reportssymptoms are usually well controlled,no fatigue,no dizziness,no excessive sweating,no headaches,no confusion,no increased thirst,no increased appetite,no increased urination,no blurred vision,no numbness of feet, andno calluses on feet. Care Management - HypertensionReported by PatientHPIFor self care, patient reportsnot under emotional stress. For severity, patient reportssymptoms are improvinganddoes not interfere with daily activities. For associated symptoms, patient reportsno dizziness,no lightheadedness,no chest pain,no shortness of breath,no palpitations,no edema,no calf muscle cramps,no blurred vision,no confusion,no headaches, andno fatigue.ROS as noted in the HPI here for rechk and is doing wellno majors complaints Rangel Macdonald, DO [address] [place], [address], [facility] 12/19/2023 14:22:57 024 text/ht ml Medicare Annual Wellness VisitReported by PatientSocial/Behavioral HistoryFor diet and nutrition, patient reportshealthy diet. For fracture risk, patient reportsno history of fractures,no recent explained fracture,no sudden unexplained fractures, andno previous musculoskeletal injuries. For physical activity, patient reportsexercises on a regular basis,recent increase in physical activity, andgood physical condition.Mental Status:For depression risk, patient reportsnever feels sad, empty, or tearful,no loss of interest in activities,no significant changes in weight,no sleep disturbances or insomnia,no agitation,no loss of energy,no feelings of worthlessness or guilt,no thoughts of suicide,no history of depression, andno history of mood disorders. For orientation, patient reportsno disorientation to time,no disorientation to date, andno disorientation to place. For concentration and memory, patient reportsno decreased concentrating ability,no memory lapses or loss, anddoes not forget words. For speech/motor difficulties, patient reportsno speech difficulties,no difficulty expressing formulated concepts,no difficulty with fine manipulative tasks,no difficulty writing/copying,no slowed reaction time, anddoes not knock things over when trying to pick them up.Functional AbilityFor hearing, patient reportsno loss of hearing. For vision, patient reportsno vision problems. For activities of daily living, patient reportsable to bathe with limited or no assistance,able to contol urination and bowels,able to dress with limited or no assistance,able to feed self with limited or no assistance,able to get out of chair or bed with limited or no assistance,able to groom with limited or no assistance, andable to toilet with limited or no assistance. For instrumental activities of daily living, patient reportsable to do house work with limited or no assistance,able to grocery shop with limited or no assistance,able to manage medications with limited or no assistance,able to manage money with limited or no assistance,able to prepare meals with limited or no assistance, andable to use the phone with limited or no assistance. For falls risk assessment, patient reportsno frequent falls while walking,no fall in the past year,no fall since last visit, andno dizziness/vertigo. For home safety, patient reportsno unsafe jacque hazzards,no unsafe stairs,no unsafe gas appliances,working smoke/co detectors,wears protective head gear for biking/high velocity,use of seatbelts,practicing 'safer sex',no vision or hearing loss while driving,no fire arms,has hand bars in the bathroom/shower, andgood lighting in the home.reviewed labROS as noted in the HPI Rangel Macdonald DO [address] [place] [address], [phone], [facility] 06/28/2024 13:59:22 025 text/ht ml ROS as noted in the HPI here for r echk and is doing well fhrzllxa0v is 6.3no cp o sob feels wellsleeping okappetite controlled Rangel LimElizabeth Macdonald DO [address] [place] [address], [phone], [facility] 10/08/2024 14:12:16 025 text/ht ml Care Management - HypertensionReported by PatientHPIFor self care, patient reportsnot under emotional stress. For severity, patient reportssymptoms are improvinganddoes not interfere with daily activities. For associated symptoms, patient reportsno dizziness,no lightheadedness,no chest pain,no shortness of breath,no palpitations,no edema,no calf muscle cramps,no blurred vision,no confusion,no headaches, andno fatigue. Care Management - DiabetesReported by PatientHPIFor self care, patient reportsseeing eye doctor yearly for dilated eye exam,checking feet regularly,normal range of home blood sugars (in the low 100s), andno side effects from medications. For associated symptoms, patient reportssymptoms are usually well controlled,no fatigue,no dizziness,no excessive sweating,no headaches,no confusion,no increased thirst,no increased appetite,no increased urination,no blurred vision,no numbness of feet, andno calluses on feet. Care Management - HyperlipidemiaReported by PatientIFor control, patient reportsusually well controlled,improving, andat goal. For complications, patient reportsno coronary artery disease,no heart attack,no cardiovascular disease,no pancreatitis, andno stroke.ROS as noted in the HPI here for rechk and is doing well Rangel Macdonald DO [address] [place], [address], [facility] 01/07/2025 14:47:08 025 text/ht ml Care Management - DiabetesReported by PatientHPIFor self care, patient reportsseeing eye doctor yearly for dilated eye exam,checking feet regularly,normal range of home blood sugars (in the low 100s), andno side effects from medications. For associated symptoms, patient reportssymptoms are usually well controlled,no fatigue,no dizziness,no excessive sweating,no headaches,no confusion,no increased thirst,no increased appetite,no increased urination,no blurred vision,no numbness of feet, andno calluses on feet. Care Management - HypertensionReported by PatientHPIFor self care, patient reportsnot under emotional stress. For severity, patient reportssymptoms are improvinganddoes not interfere with daily activities. For associated symptoms, patient reportsno dizziness,no lightheadedness,no chest pain,no shortness of breath,no palpitations,no edema,no calf muscle cramps,no blurred vision,no confusion,no headaches, andno fatigue. Care Management - Atrial FibrillationReported by PatientCare ManagementFor medications, patient reportscompliant with medication. For prior imaging, patient reportsechocardiogramandrecent ecg.Interim HistoryFor associated symptoms, patient reportsno dizziness,no chest pain,no easy bruisability, andno rapid heart rate.ROS as noted in the HPI doing well no major issues and is feeling well ] ]no cpno sob no prob sleeping bowels okbladder oka1c is 6.8 doing fine Rangel Macdonald DO [address] [place], [address], [facility] 04/22/2025 13:47:11
[2025-07-07 14:18] LABS: Prostate Specific Antigen 1.48 ng/mL (<0.05-4.0)
[2025-07-07 14:21] LABS: Alanine Aminotransferase 26 U/L (0-40); Albumin Level 4.4 g/dL (3.5-5.0); Alkaline Phosphatase 90 U/L (39-117); Anion Gap 12 (12-20); Aspartate Amino Transferase 34 U/L (5-37); Blood Urea Nitrogen 16 mg/dL (9-16); Calcium 10.4 mg/dL (8.4-10.2); Carbon Dioxide 25 mmol/L (22-29); Chloride 108 mmol/L (96-108); Cholesterol 158 mg/dL (<200); Estimated Glomerular Filt Rate > 60; HDL Cholesterol 51 mg/dL (>40); Potassium 4.6 mmol/L (3.3-5.1); Sodium 140 mmol/L (135-145); Total Protein 7.3 g/dL (6.5-8.0); Triglycerides 102 mg/dL (<150)
[2025-07-07 14:37] LABS: Thyroid Stimulating Hormone 0.53 uIU/mL (0.32-4.0)
[2025-07-07 14:46] LABS: Hemoglobin A1C 132.8974 umol/L; Total Hemoglobin (HGBA1C) 2647.4710 umol/L
== END 2025-07-07 08:46 | disposition home or self-care (01) ==
LOC: HO.MANLDS 08:45
PROVIDERS: Visit Provider Internal Medicine
DX: Z12.5 Encounter for screening for malignant neoplasm of prostate (principal); E11.9 Type 2 diabetes mellitus without complications; E03.9 Hypothyroidism, unspecified; E78.00 Pure hypercholesterolemia, unspecified; N40.0 Benign prostatic hyperplasia without lower urinary tract symptoms
CPT/HCPCS: 36415; 80053; 80061; 83036; 84153; 84443